=== PATIENT | male | born 1965 | race Caucasian/White ===

== ENCOUNTER 2024-01-02 19:26 | Emergency (ER) | payer SELFPAY ==
--- NOTE | ~2024-01-02 | CT_ITS ---
EXAMINATION: CT HEAD WITHOUT CONTRAST CLINICAL INFORMATION: Trauma. COMPARISON: None available. TECHNIQUE: Contiguous axial imaging was performed from the skull base to vertex without intravenous administration of contrast. This CT examination was performed using dose optimization techniques as appropriate, variously including the following: *Automated exposure control *Adjustment of mA and/or kV according to patient size (this includes techniques or standardized protocols for targeted exams where dose is matched to indication/reason for exam; i.e. extremities or head) *Use of iterative reconstruction technique DLP: 739 mGy-cm FINDINGS: There is no acute intracranial hemorrhage. There is no evidence of acute/subacute cerebral or cerebellar infarction. There is no midline shift or mass effect. No extra-axial fluid collection. The ventricles are normal in size. The orbits are symmetric and within normal limits. The calvarium is intact. The mastoid air cells are well-aerated. Visualized paranasal sinuses are clear. CT/CT head/brain wo IV con IMPRESSION: No acute intracranial abnormality. Electronically signed by: Gil Mahmood DO 01/02/2024 10:16 PM EDT
[2024-01-02 19:59] VITALS: BP 126/79; PULSE 104; RESP 18; TEMP 36.8; O2SAT 97; BMI 24.4
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
== END 2024-01-03 01:01 | disposition left against medical advice (07) ==
PROVIDERS: Emergency Provider Emergency Medicine; PCP Family Medicine
DX: S09.90XA Unspecified injury of head, initial encounter (principal); X58.XXXA Exposure to other specified factors, initial encounter; Y93.9 Activity, unspecified; Y92.9 Unspecified place or not applicable; Y99.9 Unspecified external cause status; Z53.21 Procedure and treatment not carried out due to patient leaving prior to being seen by health care provider
CPT/HCPCS: 70450; 99281

== ENCOUNTER 2024-11-11 04:40 | Emergency (ER) | payer MEDICARE, SELFPAY ==
--- NOTE | 2024-11-11 | ECG_ITS ---
Test Reason : weakness, fall, dizziness Blood Pressure : */* mmHG Vent. Rate : 64 BPM Atrial Rate : 64 BPM P-R Int : 168 ms QRS Dur : 100 ms QT Int : 432 ms P-R-T Axes : 34 26 44 degrees QTcB Int : 445 ms Normal sinus rhythm Normal ECG No previous ECGs available Referred By: Generic ED Physician Electronically Signed By: BEL CASIANO MD
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
[2024-11-11 04:43] VITALS: BP 100/62; BP 110/80; PULSE 66; RESP 12; TEMP 36.6; O2SAT 95; O2SAT 96; BMI 25.1
[2024-11-11 05:14] LABS: Basophils Absolute Auto 0.1 X10*3/uL (0.0-0.2); Basophils Percent Auto 0.4 % (0-2); Eosinophils Absolute Auto 0.1 X10*3/uL (0.0-0.4); Eosinophils Percent Auto 0.7 % (0-4); Hematocrit 39.7 % (42.0-52.0); Hemoglobin 14.1 g/dl (14.0-18.0); Imm Gran Abs Auto 0.04 X10*3/uL (0.00-0.03); Imm Gran Pct Auto 0.3 % (0.0-0.4); Lymphocytes Absolute Auto 1.5 X10*3/uL (1.2-4.9); Lymphocytes Percent Auto 12.6 % (20-40); MANUAL DIFF FLAG NO; Mean Corpuscular HGB Conc 35.5 g/dl (31.0-36.0); Mean Corpuscular Hemoglobin 31.1 pg (27.0-33.0); Mean Corpuscular Volume 87.4 fL (80.0-98.0); Mean Platelet Volume 8.5 fL (9.4-12.4); Monocytes Absolute Auto 0.6 X10*3/uL (0.1-1.2); Monocytes Percent Auto 4.6 % (2-11); Neutrophils Absolute Auto 9.8 x10*3/uL (2.0-8.3); Neutrophils Percent Auto 81.4 % (45-73); Platelet Count 172 X10*3/uL (160-400); Red Blood Count 4.54 X10*6/uL (4.60-5.80); Red Cell Distribution Width 13.2 % (11.0-16.0)
[2024-11-11 05:25] LABS: Anion Gap 14 (12-20); Blood Urea Nitrogen 14 mg/dL (9-16); Calcium 8.7 mg/dL (8.4-10.2); Carbon Dioxide 23 mmol/L (22-29); Chloride 106 mmol/L (96-108); Creatinine Clr Calc Pharmacy 81.7; Estimated Glomerular Filt Rate > 60; Glucose Random 283 mg/dL (60-115); Potassium 3.3 mmol/L (3.3-5.1); Sodium 140 mmol/L (135-145)
[2024-11-11 07:08] VITALS: BP 98/64; PULSE 71; RESP 13; O2SAT 95
--- NOTE | 2024-11-11 07:08 | ED_ITS ---
HPI - Syncope General Chief Complaint: Fall Stated Complaint: fall Time Seen by Provider: 11/11/24 07:02 Source: patient, family and EMS Mode of arrival: EMS Limitations: no limitations History of Present Illness ED Provider: RASTA HPI narrative: 59 yo male with PMH of arthritis who takes lyrica, HLD, prior HTN but not on any new medications who notes he started to have body pain and aches in his joints worse than usual around 2am. He took his lyrica at 3am. He started to feel off like he was lightheaded and was standing in the kitchen when he fell down with brief LOC but was back up in a few seconds. He denies trauma. He notes he tried to get up again and walk and fell hitting his head into the wall but no LOC. He notes no recent n/v/d, GIB symptoms, no travel or procedures and no CP/SOB. He states he has been drinking enough water and denies being outside in the heat. He states he has some pain to the R knee from the fall. MD complaint: loss of consciousness Onset (ago): hour(s) (2am) -: second(s) Prodromal symptoms: vision changes and lightheaded Witnessed: No Context: standing up Injuries sustained associated with event: head and RLE Current symptoms: none Treatments prior to arrival: none Related Data Allergies Allergy/AdvReac Type Severity Reaction Status Date / Time gabapentin Allergy Unknown Unknown Verified 11/11/24 04:53 Sulfa (Sulfonamide Allergy Unknown Unknown Verified 11/11/24 04:53 Antibiotics) nabumetone AdvReac Unknown stomach Verified 11/11/24 04:53 upset Review of Systems 2 Review of Systems: Constitutional : No Fever, No Chills, No Fatigue ENT/Mouth : No sore throat, No Rhinorrhea Eyes: No Eye Pain, No Swelling, No Redness Cardiovascular : No Chest Pain, No SOB, No Dyspnea on Exertion Respiratory : No Cough, No Sputum Gastrointestinal : No Nausea, No Vomiting, No Diarrhea, No abdominal Pain Genitourinary : No Dysuria, No Urinary Frequency, No Hematuria, Musculoskeletal : No joint pain, No Myalgias, No Joint Swelling Skin : No Skin Lesions, No rash, pos abrasion Neuro : No Weakness, No Numbness,pos Dizziness, no Headache Psych : No Anxiety/Panic, No Depression Heme/Lymph: No Bruising, No Bleeding,No Lymphadenopathy Endocrine : No Polyuria, No Polydipsia All other systems reviewed and are negative [facility] Past Medical History Attestation statement: The following information was validated with the patient. Medical History HLD (hyperlipidemia) HTN (hypertension) Arthritis Social History Social History (Updated 11/11/24 @ 07:44 by Kateryna Restrepo DO) Patient Tobacco Use Status: Current everyday Tobacco user Smoked in Last 30 Days: Yes Use of substances other than those prescribed or required for medical reasons: No Advance Directives: No Advance Directives Information Provided: No Physical Exam 2 Vital Signs: Vital Signs: Last Vital Signs Temp 97.9 F 11/11/24 04:43 Pulse 77 11/11/24 08:01 Resp 13 11/11/24 07:08 BP 110/73 11/11/24 08:01 Pulse Ox 95 11/11/24 07:08 O2 Del Method Room Air 11/11/24 07:08 BMI result Body Mass Index 25.1 Appearance: Alert. Oriented X3. No acute distress. Eyes: Pupils equal, round and reactive to light. ENT: Pharynx dry MM. R side of head ttp but no obvious deformity Neck: Normal inspection. Neck supple. CVS: Normal heart rate and rhythm. Pulses normal. Respiratory: No respiratory distress. Breath sounds normal. Abdomen: Soft and nontender. Skin: Skin warm and dry. Normal skin color. Normal skin turgor. Extremities: No lower extremity edema. No calf ttp R knee superficial abrasion Neuro: Oriented X 3. No motor deficit. No sensory deficit. CN2-12 intact Medications Administered Discontinued Medications Generic Name Dose Route Start Last Admin Trade Name Freq PRN Reason Stop Dose Admin Lactated Ringer's 1,000 mls @ 999 mls/hr 11/11/24 07:16 11/11/24 09:49 Lr IV 11/11/24 08:16 Infused .Q1H1M ONE Infusion Lactated Ringer's 1,000 mls @ 999 mls/hr 11/11/24 07:16 11/11/24 09:49 Lr IV 11/11/24 08:16 Infused .Q1H1M ONE Infusion Medical Decision Making Medical Decision Making MDM Narrative: 59 yo male with PMH of arthritis who takes lyrica, HLD, prior HTN here with episode of syncope with prodrome but no proceeding CP/SOB, GIB symptoms or GI losses. He has no abd pain on exam and otherwise looks mildly dehydrated but not toxic. He takes no HTN meds or diuretics. At this time he he has no hypoxia or chest pain to suggest VTE or ACS. He appears dry at this time will obtain labs, CT head, EKG, ortho VS, IVF x 2L and reassess. He had a prodrome and suspicion he was going to pass out as well no known hx of CAD. Differential Diagnosis Differential Diagnoses: The differential diagnosis associated with the presentation includes dehydration, anemia, rhabdo Admission/Observation Consideration of admission/observation: Escalation of care including admission/observation considered two trops negative, imaging negative symptoms negative ortho VS negative symptoms including his cramps resolved with IVF Lab Data MDM Lab Attestation statement: I reviewed the patient's lab results. 11/11/24 05:09 11/11/24 05:09 Labs: Lab Results 11/11/24 11/11/24 11/11/24 Range/Units 05:09 07:52 09:07 WBC 12.0 H (4.8-10.8) X10*3/uL RBC 4.54 L (4.60-5.80) X10*6/uL Hgb 14.1 (14.0-18.0) g/dl Hct 39.7 L (42.0-52.0) % MCV 87.4 (80.0-98.0) fL MCH 31.1 (27.0-33.0) pg MCHC 35.5 (31.0-36.0) g/dl RDW 13.2 (11.0-16.0) % Plt Count 172 (160-400) X10*3/uL MPV 8.5 L (9.4-12.4) fL Immature Gran % (Auto) 0.3 (0.0-0.4) % Neut % (Auto) 81.4 H (45-73) % Lymph % (Auto) 12.6 L (20-40) % [place] % (Auto) 4.6 (2-11) % Eos % (Auto) 0.7 (0-4) % Baso % (Auto) 0.4 (0-2) % Lymph # (Auto) 1.5 (1.2-4.9) X10*3/uL [place] # (Auto) 0.6 (0.1-1.2) X10*3/uL Eos # (Auto) 0.1 (0.0-0.4) X10*3/uL Baso # (Auto) 0.1 (0.0-0.2) X10*3/uL Abs Immat Gran (auto) 0.04 H (0.00-0.03) X10*3/uL Absolute Neuts (auto) 9.8 H (2.0-8.3) x10*3/uL Absolute Nucleated RBC 0.000 (0.0-0.012) X10*3/uL Nucleated RBC % (auto) 0.0 (0.0-0.2) /100WBC Sodium 140 (135-145) mmol/L Potassium 3.3 (3.3-5.1) mmol/L Chloride 106 (96-108) mmol/L Carbon Dioxide 23 (22-29) mmol/L Anion Gap 14 (12-20) BUN 14 (9-16) mg/dL Creatinine 1.03 (0.5-1.4) mg/dL Estim Creat Clear Calc 81.7 Estimated GFR > 60 Random Glucose 283 H (60-115) mg/dL Calcium 8.7 (8.4-10.2) mg/dL Magnesium 2.0 (1.6-2.6) mg/dL Total Bilirubin 0.5 (0.0-1.0) mg/dL Direct Bilirubin 0.1 (0.0-0.5) mg/dL AST 25 (5-37) U/L ALT 14 (0-40) U/L Alkaline Phosphatase 49 (39-117) U/L Total Creatine Kinase 164 (38-174) U/L Troponin I High Sens < 2.7 < 2.7 (<3.5-35.0) ng/L Total Protein 6.4 L (6.5-8.0) g/dL Albumin 4.0 (3.5-5.0) g/dL Ethyl Alcohol < 10 mg/dL Influenza Type A (PCR) NEGATIVE (Negative) Influenza Type B (PCR) NEGATIVE (Negative) RSV RNA Qual (PCR) NEGATIVE (Negative) SARS-CoV-2 RNA (RT-PCR) NEGATIVE (Negative) Independent Interpretation I performed an independent interpretation of an: EKG and CT Scan (normal ) Interpretation: Rate: 64 Rhythm: NSR [place]: normal Normal P waves. Normal KATIE. Normal QRS complex. ST T wave : normal no JEFFREY qTC:445 prior studies: no acute ischemia The study has been interpreted contemporaneously by me. . Radiology Impression Discussion of test interpretation with radiology: I have reviewed the radiologist's reading. Independent Historian Clinical information obtained from an independent historian. History obtained from or confirmed by: EMS External Record Review External record reviewed: Outpatient record Discharge Plan Discharge Clinical Impression: Abrasion, Myalgia Syncope Qualifiers: Syncope type: unspecified Qualified Code(s): R55 - Syncope and collapse Patient Disposition: Home, Self-Care Instructions: Musculoskeletal Pain (ED), Syncope (ED), Abrasion (ED) Additional Instructions: rest and stay hydrated CT head normal today labs and repeat heart tests normal EKG reassuring follow up with your doctor rest for the next few days return for chest pain, fevers, vomiting, diarrhea, dizziness and fainting Print Language: Croatian
[2024-11-11] MEDS: Lactated Ringers 1,000 ML 999 ML IV ×2 (07:24→07:59)
[2024-11-11 07:46] LABS: Ethanol < 10 mg/dL
[2024-11-11 07:55] LABS: Troponin-I High Sensitivity < 2.7 ng/L (<3.5-35.0)
[2024-11-11 08:00] VITALS: BP 105/67; PULSE 65
[2024-11-11 08:01] VITALS: BP 107/77; BP 110/73; PULSE 76; PULSE 77
[2024-11-11 08:14] LABS: Alanine Aminotransferase 14 U/L (0-40); Alkaline Phosphatase 49 U/L (39-117); Aspartate Amino Transferase 25 U/L (5-37); Bilirubin Direct 0.1 mg/dL (0.0-0.5); Bilirubin Total 0.5 mg/dL (0.0-1.0); Total Protein 6.4 g/dL (6.5-8.0)
[2024-11-11 09:18] LABS: Influenza A PCR NEGATIVE (Negative); Influenza B PCR NEGATIVE (Negative); Resp Syncy Virus RNA Qual PCR NEGATIVE (Negative); SARS COV2 PCR INHOUSE NEGATIVE (Negative)
[2024-11-11 09:40] LABS: Troponin-I High Sensitivity < 2.7 ng/L (<3.5-35.0)
[2024-11-11 10:06] VITALS: BP 119/74; PULSE 61; RESP 14; TEMP 36.3; O2SAT 97
[2024-11-11 10:13] VITALS: BP 119/74; PULSE 61; RESP 14; TEMP 36.3; O2SAT 97
== END 2024-11-11 10:13 | disposition home or self-care (01) ==
PROVIDERS: Emergency Provider Emergency Medicine
DX: R55 Syncope and collapse (principal); M79.10 Myalgia, unspecified site; S80.211A Abrasion, right knee, initial encounter; W18.39XA Other fall on same level, initial encounter; I10 Essential (primary) hypertension; E78.5 Hyperlipidemia, unspecified; F17.200 Nicotine dependence, unspecified, uncomplicated; Z03.818 Encounter for observation for suspected exposure to other biological agents ruled out; Y93.9 Activity, unspecified; Y92.9 Unspecified place or not applicable; Y99.9 Unspecified external cause status
CPT/HCPCS: 0241U; 36415; 70450; 80048; 80076; 80307; 82550; 83735; 84484; 85025; 93005; 96360; 96361; 99284; 99285; J7120

== ENCOUNTER → 2024-11-11 04:52 | Outpatient (BNV) | payer MEDICARE, SELFPAY | PROVIDERS: Emergency Provider Emergency Medicine; Visit Provider Internal Medicine Cardiovascular Disease | DX: R53.1 Weakness (principal); R42 Dizziness and giddiness; W19.XXXA Unspecified fall, initial encounter | CPT/HCPCS: 93010 ==

== ENCOUNTER → 2024-11-11 07:16 | Outpatient (BNV) | payer MEDICARE, SELFPAY | PROVIDERS: Emergency Provider Emergency Medicine; Visit Provider Radiology Diagnostic Radiology | DX: S09.90XA Unspecified injury of head, initial encounter (principal) | CPT/HCPCS: 70450 ==

== ENCOUNTER 2025-03-28 08:07 | Outpatient (AMB) | payer MEDICARE, SELFPAY ==
--- OUTSIDE RECORDS SUMMARY | 2009-03-18 | XMS_ITS | Encounter Summary ---
Author Organization [facility] Address [address] [employer] [facility] [address] [place] [phone] Phone Care Team Providers Care Grit Blaster Name Role Phone Unavailable Primary Care Provider Unavailabl e Encounter Details Date Type Department Care Team (Late st Contact Info) Description 03/18/2009 Hospital Encounter [facility],Outside Imaging [address] [place] [address] System, Provider Not In, [facility] [address] [address] Social History Tobacco Use Types Packs/Day Years Used Date Smoking Tobacco: Every Day Cigarettes 0.5 38.9 Started: 1986 Smokeless Tobacco: Never Comments:10 cigarettes daily Alcohol Use Standard Drinks/Week Comments Not Currently 0 (1 standard drink = 0.6 oz pur e alcohol) 1-2 x year Child or Family Care Answer Date Record ed Do you have problems with on e of the following making it difficult for you to work, study, or receive health care? No 11/23/2022 Education Answer Date Recorded Are you interested in more education? Not on fermin e 11/23/2024 Are you concerned about learning? Not on file 11/23/2024 No 11/23/2024 No 11/23/2024 Food Answer Date Recorded Within the past 6 months we worried whether our food would run out before we got money to buy more. Never True 11/23/2022 Within the past 6 months the food we bought just didn't last and we didn't have enough money to get more. Never True Residential Stability Answer Date Recor ded What is your housing situation today? I have ekaterina sing 11/23/2022 How many times have you move d in the past 12 months? Zero (I did not move) 11/23/2022 Paying for Meds Answer Date Recorded Do you have trouble paying for medicines? No 11/23/2022 Paying Utility Bills Answer Date Record ed Do you have trouble paying your heating or elect ricity bill? No 11/23/2022 Transportation Answer Date Recorded Has the lack of transportati on kept you from medical appointments or from getting medications? No 11/23/2022 Unemployment Answer Date Recorded Are you currently unemployed or working on a part-time or temporary basis, and looking for work? No 11/13/2021 Digital Access Answer Date Recorded No 11/23/2024 No 11/23/2024 Reliable internet access at home? Not on file 11/23/2024 Device with a working camera? Not on file Intimate Partner Violence Answer Date R ecorded Are you denied basic needs s uch as food, clothing, or medical care? No 02/13/2025 In the past 12 months have y ou been in a relationship with a person who hurts, threatens, or tries to control you? No 02/13/2025 Are you denied basic needs s uch as food, clothing, or medical care? No 02/13/2025 In the past 12 months have y ou been in a relationship with a person who hurts, threatens, or tries to control you? No 02/13/2025 Sex and Gender Information Value Date Recorded Sex Assigned at Male 02/13/2025 4:23 AM EDT Legal Sex Male 10:32 PM EDT Gender Identity Male 02/13/2025 4:23 AM EDT Sexual Orientation Don't know 02/13/2025 4: 23 AM EDT documented as of this encounter Functional Status * Calculated C-SSRS Risk Score (Lifetime/Recent) Answer Date of Assessment Author No Risk Indicated 02/13/2025 4:12 AM EDT Clementina Hansen RN * Eads Suicide Severity Rating Scale (Screener/Recent Self-Report) Question Answer Date of Assessment Author 1. Wish to be (Past 1 Month) No 02/13/2025 4:12 AM EDT Radha Du RN 2. Non-Specific Active Suicidal Thoughts (Past 1 Month) No 02/13/2025 4:12 AM EDT Radha Du RN 6. Suicidal Behavior (Lifetime) No 02/13/2025 4:12 AM EDT Radha Du RN documented as of this encounter Plan of Treatment Upcoming Encounters Date Type Department Care Team (Late st Contact Info) Description 04/03/2025 8:00 AM EST Office Visit [facility] Orthopedics & Sports Medicine [address] [place] [phone] Danielle Blanca MD [address] [place] [address] Orthopedics & Sports Medicine, [facility] [place] [address] [email or web address] documented as of this encounter Procedures Procedure Name Priority Date/Time Associated Diagnosis Comments MRI SPINE MUSCULOSKELETAL FOCUS OUTSIDE (NO INTERPRETATION) Routine 03/18/2009 12:00 AM EST documented in this encounter Results * MRI Spine (Bone) Outside (No Interpretation) (03/18/2009 12:00 AM EST) Narrative SYSTEMGENERATED, DOCUMENTATION - 12/30/2020 5:53 PM EDT This study is for PACS storage only and not for interpretation. us Provider Not In System PhD IMG OUTSIDE IMAGING W /OUT INTERPRETATION Final Result documented in this encounter Visit Diagnoses Not on filedocumented in this encounter Additional Source Comments The information contained in this document represents components of the legal health record. It is not the complete legal health record.[facility]
--- OUTSIDE RECORDS SUMMARY | 2025-03-27 08:00 | XMS_ITS | Encounter Summary ---
Author Organization [facility] Address [address] [facility] [address] [place] [phone] Phone Care Team Providers Care Breeder Hen Service Technician Name Role Phone Billy Miramontes MD Unavailable [phone] SahUmesh longoria DO Primary Care Provider [phone] Umesh Pugh DO Unavailable Reason for Visit * Reason Comments Follow-up Arthritis of carpome tacarpal (CMC) joint of left thumb Encounter Details Date Type Department Care Team (Latest Contact Info) Description 03/27/2025 8:00 AM EST Office Visit [facility] Orthopedics & Sports Medicine [address] [place] [address] [phone] Tomasa De La Garza PA-C [address] [place] [address] Orthopedics & Sports Medicine, [facility]. 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 I have ekaterina elmore 11/23/2022 How many times have you move [...] AM EDT documented as of this encounter Progress Notes * Tomasa De La Garza PA-C - 03/27/2025 8:00 AM EST [facility] Date of Visit: 03/27/2025 Reason for Appointment: Left thumb pain HPI: Harpreet Ortega is a 59 y.o. male who presents today requesting injection into the IP joint of his left thumb. He last underwent an injection into this joint 5 months ago in October 2024. That provided excellent relief for several months. No other concerns. Exam: In general, the patient is in no acute distress. Affect is appropriate. Alert and oriented ??3. Breathing is nonlabored. Left hand: No gross deformity present. No swelling or ecchymosis or breaks in skin. He is tender topalpation at the dorsum of the interphalangeal joint and to a lesser extent at the thumb CMC. He has no tenderness at the A1 annabella, no catching or triggering. Intact EPL, FPL function. Imaging: Previous x-rays taken in clinic. These were reviewed today. Images confirm osteophyte formation at the thumb IP and some flattening at the MP. Also some arthritic changes at the thumb CMC. Asssessment: Left thumb arthritis Plan: Patient requested and tolerated well injection into the IP joint of the left thumb. This can be repeated no sooner than 4 months from today. He is welcome to return as needed. All questions were answered to the patient's content today. Harpreet Ortega verbalizes understanding and agreement withplan. Procedure: After discussion of risks and benefits of corticosteroid injection, patient elected to proceed. The left thumb IP joint was prepped with ChloraPrep. An injection of 0.5 cc of 1% lidocaine plain and 0.5 cc of 40 mg/mL Kenalog was injected into the thumb IP joint from the ulnar aspect. Patient tolerated injection well, and Band-Aid was placed. Tomasa De La Garza PA-C documented in this encounter Plan of Treatment Upcoming Encounters Date Type Department Care Team (Late st Contact Info) Description 04/03/2025 8:00 AM EST Office Visit [facility] Orthopedics & Sports Medicine [address] [place] [address] Danielle Blanca MD [facility] Orthopedics & Sports Medicine, [facility] 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- Primary documented in this encounter Administered Medications Inactive Administered Medications - up to 3 most recent administrations Medication Order MAR Action Action Date Dose Rate Site lidocaine (XYLOCAINE) 1% injection 0.5 mL 0.5 mL, See Administration Instructions, Once, On Sherrill 03/27/25 at 0930, For 1 dose Given 03/27/2025 9:13 AM EST 0.5 mL triamcinolone acetonide (KENALOG-40) 40 mg/mL injection 20 mg 20 mg, See Administration Instructions, Once, On Sherrill 03/27/25 at 0930, For 1 dose, Shake Well Given 03/27/2025 9:14 AM EST 20 mg documented in this encounter Additional Health Concerns Assessment Noted Time PHQ-2 Depression Total Score: 0 07/24/19 7:58 AM EDT documented as of this encounter Care Teams Breeder Hen Service Technician Relationship Specialty Start Date End Date Umesh Pugh DO [address] [id number] [email or web address] PCP - General Family Medicine 10/05/23 Billy Miramontes MD [address] [place] [id number] Neurosurgery 03/24/20 Umesh Pugh DO [address] [place] [id number] [email or web address] Insurance Assigned Provider 08/18/24 documented as of this encounter Additional Source Comments The information contained in this document represents components of the legal health record. It is not the complete legal health record.[facility]
[2025-03-28 08:08] VITALS: BP 122/88; PULSE 92; TEMP 36.7; O2SAT 95; BMI 22.5
--- NOTE | 2025-03-28 08:08 | MHC.OFFWIV ---
Intake Vital Signs 03/28/25 08:08 Height 5 ft 10 in Weight 157 lb BMI 22.5 BP 122/88 Blood Pressure Location Rt brachial Position Sitting Pulse 92 Pulse Source Pulse Oximeter Temp 98.1 F Temp Source Oral Pulse Oximetry (%) 95 Oxygen Delivery Method Room Air Intake Visit Reasons: EP pain on left side of jaw Intake Note: Patient presents c/o lower left jaw pain since last night - ongoing problem, in between implants & surgeries. Patient Tobacco Use Status: Current everyday Tobacco user Allergies gabapentin Allergy (Unknown, Verified 03/28/25 08:12) Unknown Sulfa (Sulfonamide Antibiotics) Allergy (Unknown, Verified 03/28/25 08:12) Unknown nabumetone Adverse Reaction (Unknown, Verified 03/28/25 08:12) stomach upset Do you need a note to return to daycare/school/sports/work: No HPI HPI Comments History of Present Illness Details This is a 59-year-old male with a past medical history of OCD, hyperlipidemia and arthritis presenting for evaluation of left facial pain. Patient states last night he developed pain on the left side of his chin with swelling and experienced chills in the nighttime. Patient has taken Tylenol only without relief of his discomfort. Patient is working with his dentist to have implants placed but has not seen his dentist since November 2024. Patient denies any difficulty swallowing but does have pain with chewing. [facility] Medical History HLD (hyperlipidemia) HTN (hypertension) Arthritis Social History (Updated 11/11/24 @ 07:44 by Kateryna Restrepo DO) Patient Tobacco Use Status: Current everyday Tobacco user Review of Systems Const All systems reviewed & are unremarkable except as noted in HPI and below Reports chills, Denies fatigue and Denies fever(s) Eyes Reports no additional complaints ENT Reports no additional complaints, Reports dental pain, Denies lip swelling, Denies sore throat and Denies throat swelling Card Reports no additional complaints Resp Reports no additional complaints GI Reports no additional complaints, Denies nausea and Denies vomiting Reports no additional complaints Musc Reports no additional complaints Skin/Breast Details: swelling of chin Reports system reviewed and no additional complaints, except as documented Neuro Reports no additional complaints Psych Reports no additional complaints Endo Denies fatigue Aller/Immun Denies lip swelling and Denies throat swelling Physical Exam Vital Signs: Last Vital Signs Temp 98.1 F 03/28/25 08:08 Pulse 92 03/28/25 08:08 BP 122/88 03/28/25 08:08 Pulse Ox 95 03/28/25 08:08 Oxygen Delivery Method Room Air 03/28/25 08:08 BMI result Body Mass Index 22.5 Const General: cooperative, comfortable, no acute distress, well developed, alert, awake and Physically active; No lethargic Nutritional Appearance: average body habitus Orientation/consciousness: patient oriented x3 and No lethargic Limitations: no limitations HEENT Other: Very poor dentition with several avulsed or necrotic teeth, lower dentition, pain to palpation of lower left promolar and bicuspid teeth that are both avulsed, mild surrounding erythema of localized gingivae on both lingual and buccal aspects of teeth. There is edema and tenderness to palpation of the left anterior chin. No clinical evidence of a cellulitis or abscess of external dermis. Ears: hearing grossly normal bilaterally, external ears normal, TM's normal bilaterally and EAC's normal Mouth: Normal oral and palatal mucosa present, tongue normal, oropharynx normal, moist mucous membranes, no audible dysphonia, no drooling, normal lip, Abnormal oral and palatal mucosa present, no trismus and other (necrotic and avulsed dentition as noted above) Teeth and gingiva: abnormal dentition, abnormal tooth and associated gingiva and poor dentition Throat: Yes posterior oropharynx normal Eyes General: appearance normal, both eyes and all related structures Neck Lymphatic: lymphadenopathy (left anterior cervical adenopathy present) left anterior cervical Neuro General: patient oriented x3 Psych Appearance: grossly normal Mental Status: mental status grossly normal Insight: Good insight present (Psych) Judgement: Good judgement present (Psych) Assessment & Plan Assessment & Plan (1) Dental abscess: Comment: Patient will call his dentist today for further dental intervention. Patient will be discharged home with antibiotic therapy as well as anti-inflammatory medication for his pain. Code(s): K04.7 - Periapical abscess without sinus Plan: Penicillin and Flagyl as prescribed, Naprosyn b.i.d. and dental intervention when possible. Patient is in agreement with this plan of care. Medications: New penicillin V potassium 500 mg PO TID 30 tabs 0RF naproxen (Naprosyn) 500 mg PO BID 20 tabs 0RF metronidazole 500 mg PO Q8H 30 tabs 0RF Coding Level of Care Code Est Pt Level 4 (44049) Diagnoses Dental abscess K04.7 Time Spent (min) 25
--- OUTSIDE RECORDS SUMMARY | 2025-03-28 08:13 | XMS_ITS | Clinical Summary ---
Author Organization [facility] Address [address] [place] [address] Care Team Providers Care Delivery Director Name Role Phone Mishel Peñaloza NP Primary Care Provider Unavailabl e Surgical History Surgery Date Site/Laterality Comments VASECTOMY PROCEDURE: CA VASECTOMY UNI/BI SPX W/POSTOP SEMEN EXAMS BACK SURGERY PROCEDURE: HISTORICAL BACK SURGERY; COMMENT: Dr. Jones, lumbar disckectomy APPENDECTOMY PROCEDURE: HISTORICAL APPENDECTOMY Medical History Medical History Date Comments Headache(784.0) 08/25/2005 DX:Headache(784. 0) Displacement of lumbar inter vertebral disc without myelopathy 09/11/2006 DX:Displacement of lumbar intervertebral disc without myelopathy Anxiety 12/15/2007 DX:Anxiety Obsessive-compulsive disorder 12/15/2007 DX :Obsessive-compulsive disorder Family History Medical History Relation Name Comments Other: has been well Father Diabetes Mother Stroke Mother Relation Name Status Comments Father Alive Mother Alive Social History Tobacco Use Types Packs/Day Years Used Date Smoking Tobacco: Some Days Cigarettes 0.5 Last attempted to quit: 11/01/2005 Alcohol Use Standard Drinks/Week Comments No 0 (1 standard drink = 0.6 oz pur e alcohol) Sex and Gender Information Value Date Recorded Sex Assigned at Not on file Legal Sex Male 7:25 PM EST Gender Identity Not on file Sexual Orientation Not on file Obstetrics History Plan of Treatment Health Maintenance Due Date Last Done Comments Hepatitis B Vaccines (1 of 3 - 19+ 3-dose series) 1986 Pneumococcal Vaccine: 50+ Years (1 of 1 - PCV) 2017 Zoster Vaccines (1 of 2) 2017 DTaP,Tdap,and Td Vaccines (2 - Td or Tdap) 08/22/2017 08/23/2007 Depression Screening 05/15/2024 COVID-19 Vaccine (1 - 2024-2 6 season) 2025 Influenza Vaccine (#1) 2025 0, 04/01/2008 RSV Immunization Adult Patients (1 - 1-dose 75+ series) 2042 HIB Vaccines Aged Out No longer eligi ble based on patient's age to complete this topic HPV Vaccines Aged Out No longer eligi ble based on patient's age to complete this topic Hepatitis A Vaccines Aged Out No long er eligible based on patient's age to complete this topic IPV Vaccines Aged Out No longer eligi ble based on patient's age to complete this topic MMR Vaccines Aged Out No longer eligi ble based on patient's age to complete this topic Meningococcal ACWY Vaccine Aged Out N o longer eligible based on patient's age to complete this topic Meningococcal B Vaccine Aged Out No l onger eligible based on patient's age to complete this topic RSV Immunization Patients Under 20 months Aged Out No longer eligible b ased on patient's age to complete this topic Varicella Vaccines Aged Out No longer eligible based on patient's age to complete this topic Medical Devices Implanted Type Area Electronics Engineering Technician Device Identifier Shelf Expiration Date Model / Serial / Lot Sponge Surgiflo 8ml Hemostatic Matrix Absorbable Latex Free - [id number] Implanted:Qty: 1 on 04/08/2019 by Billy Miramontes MD Implants Spine Cervical [employer]DA [employer] LINDA WILFR[employer]O 07/12/2020 [id number] / / [id number] Sponge Surgiflo 8ml Hemostatic Matrix Absorbable Latex Free - [id number] Implanted:Qty: 2 on 04/06/2020 by Billy Miramontes MD Implants N/A: Spine Lumbar [employer]DA WILFR[employer]O 09/11/2021 [id number] / / [id number] Tissue Freeze Dried Cortical Or Cancellous Block [facility] 6 - [id number] - [id number] Implanted:Qty: 1 on 04/08/2019 by Billy Miramontes MD Spine Cervical [employer] 05/11/2021 [id number] / [id number] / Screw [place] 16mm Self Drilling Variable Titanium Bone - [id number] Implanted:Qty: 4 on 04/08/2019 by Billy Miramontes MD N/A: Spine Cervical DEPUY SYNTHES [id number] / / Plate Bone Titan 14 Mm Prebent L14 Mm X W16 Mm X H2.5 Mm - [id number] Implanted:Qty: 1 on 04/08/2019 by Billy Miarmontes MD N/A: Spine Cervical DEPUY SYNTHES 1868-01-014 / / Care Teams Delivery Director Relationship Specialty Start Date End Date Mishel Peñaloza NP PCP - General Family Medicine 09/11/18
--- OUTSIDE RECORDS SUMMARY | 2025-03-28 08:14 | XMS_ITS | Encounter Summary ---
Author Organization [facility] Address [address] [facility] [address] [place] [address] Phone Care Team Providers Care It Technical Architect Name Role Phone Mishel Peñaloza NP Primary Care Provider [phone] Billy Miramontes MD Unavailable [phone] Chris Stokes MD Unavailable Unknown, Unknown Primary Care Provider Umesh Barragan DO Primary Care Provider [phone] Umesh Pugh DO Unavailable Encounter Details Date Type Department Care Team (Late st Contact Info) Description 03/16/2021 Procedure Pass [facility] Endoscopy Admitting Dept Virtual Department [address] [place] [address] Social History Tobacco Use Types Packs/Day Years Used Date Smoking Tobacco: Every Day Cigarettes 0.5 35 Started: 03/19/1984; Last attempted to quit: 03/19/2019 Smokeless Tobacco: Never Alcohol Use Standard Drinks/Week Comments No 0 (1 standard drink = 0.6 oz pur e alcohol) Child or Family Care Answer Date Record ed Do you have problems with on e of the following making it difficult for you to work, study, or receive health care? No 11/05/2020 Education Answer Date Recorded Are you interested in help w ith more adult education (for example, completing high school, GED, job training, learning the [place] Zeal[place] language, technical skills, or developing parenting skills)? No 11/05/2020 Are you concerned about learning? Not on file 11/05/2020 Not on file 11/05/2020 Not on file 11/05/2020 Food Answer Date Recorded Within the past 6 months we worried whether our food would run out before we got money to buy more. Never True 11/05/2020 Within the past 6 months the food we bought just didn't last and we didn't have enough money to get more. Never True Paying for Meds Answer Date Recorded Do you have trouble paying for medicines? No 11/05/2020 Paying Utility Bills Answer Date Record ed Do you have trouble paying your heating or elect ricity bill? No 11/05/2020 Transportation Answer Date Recorded Has the lack of transportati on kept you from medical appointments or from getting medications? No 11/05/2020 Sex and Gender Information Value Date Recorded Sex Assigned at Male 02/13/2025 4:23 AM EDT Legal Sex Male 10:32 PM EDT Gender Identity Male 02/13/2025 4:23 AM EDT Sexual Orientation Don't know 02/13/2025 4: 23 AM EDT documented as of this encounter Plan of Treatment Upcoming Encounters Date Type Department Care Team (Late st Contact Info) Description 04/03/2025 8:00 AM EST Office Visit [facility] Orthopedics & Sports Medicine [address] [place] [address] Danielle Blanca MD [address] [place] [address] Orthopedics & Sports Medicine, [facility] [place] [address] [email or web address] documented as of this encounter Visit Diagnoses Not on filedocumented in this encounter Additional Health Concerns Assessment Noted Time PHQ-2 Depression Total Score: 0 11/06/19 21 3:06 PM EDT documented as of this encounter Care Teams It Technical Architect Relationship Specialty Start Date End Date Mishel Peñaloza NP PCP - General Family Medicine 02/08/18 08/09/23 Unknown, Unknown, PCP - General 08/10/23 10/04/23 Umesh Pugh DO [address] [place] [address] [address] [place] [address] [email or web address] PCP - General Family Medicine 10/05/23 Billy Miramontes MD [address] [place] [address] Neurosurgery 03/24/20 Chris Stokes MD [address] [place] [address] [email or web address] Insurance Assigned Provider 08/21/21 05/21/22 Umesh Pugh DO [address] [place] [address], [address] [place] [address] [email or web address] Insurance Assigned Provider 08/18/24 documented as of this encounter Additional Source Comments The information contained in this document represents components of the legal health record. It is not the complete legal health record.[facility]
--- OUTSIDE RECORDS SUMMARY | 2025-03-28 08:14 | XMS_ITS | Clinical Summary ---
Author Organization [facility] Address [address] [place] [address] Care Team Providers Care Dirt Supervisor Name Role Phone Mishel Peñaloza NP Primary Care Provider [phone] Allergies Active Allergy Reactions Criticality Noted Date Comments Gabapentin Diarrhea 03/21/2018 Hydrochlorothiazide High 02/20/2008 Other reaction(s): Numbness, tingling or swelling of the lips, tongue or mouth Numbness of lips, tongue and limbs Sulfa Antibiotics Anaphylaxis High 03/25/2019 Sulindac Other (See Comments) 09/28/2011 Nose bleeds Medications Medication Sig Dispensed Refills Start Date End Date Status sertraline (ZOLOFT) 100 MG tablet Take 300 mg by mouth daily. 0 11/07/2018 Active Multiple Vitamins-Minerals (MULTIVITAMIN ADULT PO) Take by mouth daily. 0 Active nicotine (NICODERM CQ) 14 MG/24HR Place 1 patch onto the skin daily. 0 Active tiZANidine (ZANAFLEX) 4 MG tablet Take 4 mg by mouth 2 (two) times a day as needed. 0 04/02/2019 Active oxyCODONE (ROXICODONE) 5 MG immediate release tablet Take 2 tablets (10 mg total) by mouth every 4 (four) hours as needed. 40 tablet 0 04/08/2019 Active oxyCODONE-acetaminoph en (PERCOCET) 5-325 MG per tablet Take 2 tablets by mouth every 4 (four) hours as needed for pain. 40 tablet 0 04/06/2020 Active Active Problems Problem Noted Date Diagnosed Date DDD (degenerative disc disease), lumbar 04/06/20 20 Status post cervical spinal fusion 04/24/2019 Social History Tobacco Use Types Packs/Day Years Used Date Smoking Tobacco: Every Day Cigarettes 0.5 Smokeless Tobacco: Never Comments:7-8 day Alcohol Use Standard Drinks/Week Comments No 0 (1 standard drink = 0.6 oz pur e alcohol) Sex and Gender Information Value Date Recorded Sex Assigned at Male 11/16/2018 12:49 PM EDT Gender Identity Male 11/16/2018 12:49 PM EDT Sexual Orientation Not on file Last Filed Vital Signs Vital Sign Reading Time Taken Comments Blood Pressure 120/82 04/17/2020 2:29 PM EST Pulse 78 04/06/2020 10:40 AM EST Temperature 36.8 C (98.3 F) 04/17/2020 2:29 PM EST Respiratory Rate 12 04/06/2020 10:15 AM EST Oxygen Saturation 94% 04/06/2020 10:40 AM EST Inhaled Oxygen Concentration - - Weight 86.2 kg (190 lb) 04/17/2020 2:29 PM EST Height 180.3 cm (5' 11 ) 04/06/2020 5:45 AM EST Body Mass Index 26.5 04/06/2020 5:45 AM EST Plan of Treatment Health Maintenance Due Date Last Done Comments Hepatitis B Vaccines (1 of 3 - 3-dose series) 1967 Hepatitis C Screening 1967 COVID-19 Vaccine (#1) 1967 Pneumococcal Vaccine (1 of 2 - PCV) 1973 Depression Screening 1979 Preventative Health Evaluation 1985 Tobacco Cessation Counseling 1985 Colon Cancer Screening (Colonoscopy) 2012 Shingrix-Zoster Vaccine (1 of 2) 2017 BMI Counseling 04/17/2021 04/17/2020, 10/13, 05/27/2019, Additional history exists Influenza Vaccine (#1) 2025 0, 04/02/2019, 03/21/2018, Additional history exists DTap / Tdap / Td (3 - Td or Tdap) 06/20/2029 06/20/2019, 08/23/2007 RSV Ped < 20 months Aged Out No longe r eligible based on patient's age to complete this topic Medical Devices Implanted Type Area Chaser Tar Device Identifier Shelf Expiration Date Model / Serial / Lot Sponge Surgiflo 8ml Hemostatic Matrix Absorbable Latex Free - [id number] - [id number] Implanted:Qty: 1 on 04/08/2019 by Billy Miramontes MD [facility] Hemostatic Agent Spine Cervical [employer] 07/12/2020 [id number] / / [id number] Sponge Surgiflo 8ml Hemostatic Matrix Absorbable Latex Free - [id number] - [id number] Implanted:Qty: 2 on 04/06/2020 by Billy Miramontes MD at [facility] Hemostatic Agent Posterior: Spine Lumbar [employer] 09/11/2021 2991 / / [id number] Tissue Freeze Dried Cortical Or Cancellous Block Assembled 6 - [id number] - [id number] Implanted:Qty: 1 on 04/08/2019 by Billy Miramontes MD at [facility] Spine Cervical [employer] SOFAMOR DANEK 05/11/2021 [id number] / [id number] / Screw Skyline[employer]a 16mm Self Drilling Variable Titanium Bone - [id number] - [id number] Implanted:Qty: 4 on 04/08/2019 by Billy Miramontes MD at [facility] Anterior: Spine Cervical [employer] [id number] / / Plate Bone Titan 14 Mm Prebent L14 Mm X W16 Mm X H2.5 Mm - [id number] - [id number] Implanted:Qty: 1 on 04/08/2019 by Billy Miramontes MD at [facility] Anterior: Spine Cervical [employer] INC 1868-01-014 / / Explanted Type Area Chaser Tar Device Identifier Shelf Expiration Date Model / Serial / Lot Screws Explanted:Qty: 6 on 04/06/2020 by Billy Miramontes MD at [facility] Posterior: Spine Lumbar Caps Explanted:Qty: 6 on 04/06/2020 by Billy Miramontes MD at [facility] Posterior: Spine Lumbar Rods Explanted:Qty: 2 on 04/06/2020 by Billy Miramontes MD at [facility] Posterior: Spine Lumbar Advance Directives For more information, please contact: [phone] Latest Code Status on File Code Status Date Activated Date Inactivated Comments Full Code 04/08/2019 7:58 AM 04/08/2019 8:31 PM Thi s code status was ascertained in the following way: per living will or healthcare instructions . Care Teams Dirt Supervisor Relationship Specialty Start Date End Date Mishel Peñaloza NP [address] [facility] [place] [address] PCP - General Family Medicine 09/11/18
--- OUTSIDE RECORDS SUMMARY | 2025-03-28 08:15 | XMS_ITS | Encounter Summary ---
Author Organization [facility] Address [address] [facility] [address] [place] [address] Phone Care Team Providers Care Orthotic Aide Name Role Phone Mishel Peñaloza NP Primary Care Provider [phone] Billy Miramontes MD Unavailable [phone] Chris Stokes MD Unavailable [phone] Unknown, Unknown Primary Care Provider Umesh Barragan DO Primary Care Provider [phone] Umesh Pugh DO Unavailable Encounter Details Date Type Department Care Team (Late st Contact Info) Description 02/04/2021 Ancillary Orders [facility] Orthopedics & Sports Medicine [address] [place] [address] Danielle Blanca MD [address] [place] [address] Orthopedics & Sports Medicine, [facility] [place] [address] [email or web address] Social History Tobacco Use Types Packs/Day Years [...] high school, GED, job training, learning the Estonian language, technical skills, or developing parenting skills)? [...] Description 04/03/2025 8:00 AM EST Office Visit [facility] Orthopedics & Sports Medicine [address] [place] [address] Danielle Blanca MD [address] [place] [address] Orth[facility] [place] [address] documented as of this encounter Visit Diagnoses Not on filedocumented in this encounter Additional Health Concerns Assessment Noted Time PHQ-2 Depression Total Score: 0 11/06/19 21 3:06 PM EDT documented as of this encounter Care Teams Orthotic Aide Relationship Specialty Start Date End Date Mishel Peñaloza NP PCP - General Family Medicine 02/08/18 08/09/23 Unknown, Mariza, PCP - General 08/10/23 10/04/23 Umesh Pugh DO [address] [facility] [address] [place] [address] [email or web address] PCP - General Family Medicine 10/05/23 Billy Miramontes MD [address] [place] [address] Neurosurgery 03/24/20 Chris Stokes MD [address] [place] [address] [email or web address] Insurance Assigned Provider 08/21/21 05/21/22 Umesh Pugh DO [address] [facility] [address] [place] [address] [email or web address] Insurance Assigned Provider 08/18/24 documented as of this encounter Additional Source Comments The information contained in this document represents components of the legal health record. It is not the complete legal health record.[facility]
--- OUTSIDE RECORDS SUMMARY | 2025-03-28 08:15 | XMS_ITS | Encounter Summary ---
Author Organization [facility] Address [address] [facility] [address] [place] [address] Phone Care Team Providers Care Cp Bleacher Operator Name Role Phone Mishel Peñaloza NP Primary Care Provider [phone] Billy Miramontes MD Unavailable [phone] Chris Stokes MD Unavailable [phone] Unknown, Unknown Primary Care Provider Umesh Barragan DO Primary Care Provider [phone] Umesh Pugh DO Unavailable Encounter Details Date Type Department Care Team (Latest Contact Info) Description 02/04/2021 Ancillary Orders [address] [address] Danielle Blanca MD [address] [place] [address] Orthopedics & Sports Medicine, [facility]. [place], [place] [id number] [email or web address] Osteoarthritis of left shoulder, unspecified osteoarthritis type Social History Tobacco Use Types Packs/Day Years [...] high school, GED, job training, learning the Ecuadorean language, technical skills, or developing parenting skills)? [...] Description 04/03/2025 8:00 AM EST Office Visit [facility] Orthopedics & Sports Medicine [address] [place] [address] Danielle Blanca MD [address] [place] [address] Orth[facility] [place] [address] [email or web address] documented as of this encounter Visit Diagnoses Diagnosis Osteoarthritis of left shoulder, unspecified osteoarthritis type documented in this encounter Additional Health Concerns Assessment Noted Time PHQ-2 Depression Total Score: 0 11/06/19 21 3:06 PM EDT documented as of this encounter Care Teams Cp Bleacher Operator Relationship Specialty Start Date End Date Mishel Peñaloza NP PCP - General Family Medicine 02/08/18 08/09/23 Unknown, Mariza, PCP - General 08/10/23 10/04/23 Umesh Pugh DO [address] [place] [address] [address] [place] [address] [email or web address] PCP - General Family Medicine 10/05/23 Billy Miramontes MD [address] [place] [address] Neurosurgery 03/24/20 Chris Stokes MD [address] [place] [address] [email or web address] Insurance Assigned Provider 08/21/21 05/21/22 Umesh Pugh DO [address] [place] [address] [address] [place] [address] [email or web address] Insurance Assigned Provider 08/18/24 documented as of this encounter Additional Source Comments The information contained in this document represents components of the legal health record. It is not the complete legal health record.[facility]
--- OUTSIDE RECORDS SUMMARY | 2025-03-28 08:16 | XMS_ITS | Encounter Summary ---
Author Organization [facility] Address [address] [facility] [address] [place] [address] Phone Care Team Providers Care Contact Lens Technician Name Role Phone Mishel Peñaloza NP Primary Care Provider [phone] Billy Miramontes MD Unavailable [phone] Chris Stokes MD Unavailable [phone] Unknown, Unknown Primary Care Provider Uemsh Barragan DO Primary Care Provider [phone] Umesh Pugh DO Unavailable Encounter Details Date Type Department Care Team (Late st Contact Info) Description 12/30/2020 Ancillary Orders [facility] [address] [place] [address] System, Provider Not In, [place] [address] Social History Tobacco Use Types Packs/Day Years [...] high school, GED, job training, learning the Icelandic language, technical skills, or developing parenting skills)? [...] Description 04/03/2025 8:00 AM EST Office Visit [facility] Orthopedics & Sports Medicine [address] [place] [address] Danielle Blanca MD [address] [place] [address] Orthopedics & Sports Medicine, [place] [address] [email or web address] documented as of this encounter Results * MRI Spine (Bone) [...] documented as of this encounter Care Teams Contact Lens Technician Relationship Specialty Start Date End Date Mishel Peñaloza NP PCP - General Family Medicine 02/08/18 08/09/23 Unknown, Mariza, PCP - General 08/10/23 10/04/23 Umesh Pugh DO [address] [place] [address] 7 [place] [address] [email or web address] PCP - General Family Medicine 10/05/23 Billy Miramontes MD [address] [place] [address] Neurosurgery 03/24/20 Chris Stokes MD [address] [place] [address] [email or web address] Insurance Assigned Provider 08/21/21 05/21/22 Umesh Pugh DO [address] [place] [address] 7 [place] [address] [email or web address] Insurance Assigned Provider 08/18/24 documented as of this encounter Additional Source Comments The information contained in this document represents components of the legal health record. It is not the complete legal health record.[facility]
--- OUTSIDE RECORDS SUMMARY | 2025-03-28 08:16 | XMS_ITS | Encounter Summary ---
Author Organization [facility] Address [address] [facility] [address] [place] [address] Phone Care Team Providers Care Biomedical Engineering Director Name Role Phone Mishel Peñaloza NP Primary Care Provider [phone] Billy Miramontes MD Unavailable [phone] Chris Stokes MD Unavailable [phone] Unknown, Unknown Primary Care Provider Umesh Barragan DO Primary Care Provider Umesh Pugh DO Unavailable Encounter Details Date Type Department Care Team (Latest Contact Info) Description 12/20/2021 Ancillary Orders [address] [address] Danielle Blanca MD [address] [place] [address] Orthopedics & Sports Medicine, [place], [place] [id number] [email or web address] Osteoarthritis of left shoulder, unspecified osteoarthritis type Social History Tobacco Use Types Packs/Day Years Used Date Smoking Tobacco: Every Day Cigarettes 1 35 Started: 03/19/1984; Last attempted to quit: 03/19/2019 Smokeless Tobacco: Never Alcohol Use Standard Drinks/Week Comments No 0 (1 standard drink = 0.6 oz pur e alcohol) Child or Family Care Answer Date Record ed Do you have problems with on e of the following making it difficult for you to work, study, or receive health care? No 11/13/2021 Education Answer Date Recorded Are you interested in help w ith more adult education (for example, completing high school, GED, job training, learning the Colombian language, technical skills, or developing parenting skills)? No 11/13/2021 Food Answer Date Recorded Within the past 6 months we worried whether our food would run out before we got money to buy more. Never True 11/13/2021 Within the past 6 months the food we bought just didn't last and we didn't have enough money to get more. Never True Residential Stability Answer Date Recor ded What is your housing situation today? I have ekaterina sing 11/13/2021 How many times have you move d in the past 12 months? Zero (I did not move) 11/13/2021 Paying for Meds Answer Date Recorded Do you have trouble paying for medicines? No 11/13/2021 Paying Utility Bills Answer Date Record ed Do you have trouble paying your heating or elect ricity bill? No 11/13/2021 Transportation Answer Date Recorded Has the lack of transportati on kept you from medical appointments or from getting medications? No 11/13/2021 Unemployment Answer Date Recorded Are you currently unemployed or working on a part-time or temporary basis, and looking for work? No 11/13/2021 Sex and Gender Information Value Date Recorded Sex Assigned at Male 02/13/2025 4:23 AM EDT Legal Sex Male 10:32 PM EDT Gender Identity Male 02/13/2025 4:23 AM EDT Sexual Orientation Don't know 02/13/2025 4: 23 AM EDT documented as of this encounter Plan of Treatment Upcoming Encounters Date Type Department Care Team (Late st Contact Info) Description 04/03/2025 8:00 AM EST Office Visit [facility] Orthopedics & Sports Medicine [address] [place] [address] Danielle Blanca MD [address] [place] [address] Orthopedics & Sports Medicine, [facility] [place] [address] Pending Results Name Type Priority Associated Diagnoses Date /Time FL Guidance Needle Placement Non-Spine Imaging Routine Osteoarthritis of left shoulder, unspecified osteoarthritis type 12/21/2021 9:02 AM EDT Scheduled Orders Name Type Priority Associated Diagnoses Orde r Schedule FL Guidance Needle Placement Non-Spine Imaging Routine Osteoarthritis of left shoulder, unspecified osteoarthritis type 1 Occurrences starting 12/20/2021 until 03/22/2022 documented as of this encounter Visit Diagnoses Diagnosis Osteoarthritis of left shoulder, unspecified osteoarthritis type documented in this encounter Additional Health Concerns Assessment Noted Time PHQ-2 Depression Total Score: 0 11/14/19 9:01 AM EDT documented as of this encounter Care Teams Biomedical Engineering Director Relationship Specialty Start Date End Date Mishel Peñaloza NP PCP - General Family Medicine 02/08/18 08/09/23 Unknown, Unknown, PCP - General 08/10/23 10/04/23 Umesh Pugh DO [address] [place] [address] 7 [place] [address] PCP - General Family Medicine 10/05/23 Billy Miramontes MD [address] [place] [address] Neurosurgery 03/24/20 Chris Stokes MD [address] [place] [address] Insurance Assigned Provider 08/21/21 05/21/22 Umesh Pugh DO [address] [place] [address] [address] [place] [address] [email or web address] Insurance Assigned Provider 08/18/24 documented as of this encounter Additional Source Comments The information contained in this document represents components of the legal health record. It is not the complete legal health record.[facility]
--- OUTSIDE RECORDS SUMMARY | 2025-03-28 08:16 | XMS_ITS | Encounter Summary ---
Author Organization [facility] Address [address] [facility] [address] [place] [address] Phone Care Team Providers Care Induction Heat Treater Name Role Phone Mishel Peñaloza NP Primary Care Provider [phone] Billy Miramontes MD Unavailable [phone] Chris Stokes MD Unavailable [phone] Unknown, Unknown Primary Care Provider Umesh Barragan DO Primary Care Provider [phone] Umesh Pugh DO Unavailable Encounter Details Date Type Department Care Team (Late st Contact Info) Description 12/20/2021 Ancillary Orders [facility] Orthopedics & Sports Medicine [address] [place] [address] Danielle Blanca MD [address] [place] [address] Orthopedics & Sports Medicine, [place] [address] [email or web address] Social History Tobacco Use Types Packs/Day [...] high school, GED, job training, learning the Argentine language, technical skills, or developing parenting skills)? [...] Description 04/03/2025 8:00 AM EST Office Visit [facility] Orthopedics & Sports Medicine [address] [place] [address] Danielle Blanca MD [address] [place] [address] Orthopedics & Sports Medicine, [place] [address] documented as of this encounter Visit Diagnoses Not on filedocumented in this encounter Additional Health Concerns Assessment Noted Time PHQ-2 Depression Total Score: 0 11/14/19 22 9:01 AM EDT documented as of this encounter Care Teams Induction Heat Treater Relationship Specialty Start Date End Date Mishel Peñaloza NP [email or web address] PCP - General Family Medicine 02/08/18 08/09/23 Unknown, Unknown, PCP - General 08/10/23 10/04/23 Umesh Pugh DO [address] [place] [address] 7 [place] [address] [email or web address] PCP - General Family Medicine 10/05/23 Billy Miramontes MD [address] [place] [address] Neurosurgery 03/24/20 Chris Stokes MD [address] [place] [address] [email or web address] Insurance Assigned Provider 08/21/21 05/21/22 Umesh Pugh DO [address] [place] [address] 7 [place] [address] [email or web address] Insurance Assigned Provider 08/18/24 documented as of this encounter Additional Source Comments The information contained in this document represents components of the legal health record. It is not the complete legal health record.[facility]
--- OUTSIDE RECORDS SUMMARY | 2025-03-28 08:17 | XMS_ITS | Encounter Summary ---
Author Organization [facility] Address [address] [facility] [address] [place] [address] Phone Care Team Providers Care Guide Foreign Tour Name Role Phone Mishel Peñaloza NP Primary Care Provider [phone] Billy Miramontes MD Unavailable [phone] Chris Stokes MD Unavailable [phone] Unknown, Unknown Primary Care Provider Umesh Barragan DO Primary Care Provider [phone] Umesh Pugh DO Unavailable Encounter Details Date Type Department Care Team (Late st Contact Info) Description 09/24/2020 Ancillary Orders [facility] Orthopedics & Sports Medicine [address] [place] [address] Danielle Blanca MD [address] [place] [address] Orthopedics & Sports Medicine, [facility] [place] [address] [email or web address] Social History Tobacco Use Types Packs/Day Years [...] Description 04/03/2025 8:00 AM EST Office Visit [facility] Orthopedics & Sports Medicine [address] [place] [address] Danielle Blanca MD [address] [place] [address] Orthopedics & Sports Medicine, [facility] [place] [address] documented as of this encounter Visit Diagnoses Not on filedocumented in this encounter Additional Health Concerns Assessment Noted Time PHQ-2 Depression Total Score: 0 12/29/19 19 9:07 AM EDT documented as of this encounter Care Teams Guide Foreign Tour Relationship Specialty Start Date End Date Mishel Peñaloza NP PCP - General Family Medicine 02/08/18 08/09/23 Unknown, Unknown, PCP - General 08/10/23 10/04/23 Umesh Pugh DO [address] [place] [address] PCP - General Family Medicine 10/05/23 Billy Miramontes MD [address] [place] [address] Neurosurgery 03/24/20 Chris Stokes MD [address] [place] [address] Insurance Assigned Provider 08/21/21 05/21/22 Umesh Pugh DO [address] [place] [address] 7 [place] [address] [email or web address] Insurance Assigned Provider 08/18/24 documented as of this encounter Additional Source Comments The information contained in this document represents components of the legal health record. It is not the complete legal health record.[facility]
--- OUTSIDE RECORDS SUMMARY | 2025-03-28 08:17 | XMS_ITS | Encounter Summary ---
Author Organization [facility] Address [address] [facility] [address] [place] [address] Phone Care Team Providers Care Press Machine Feeder Name Role Phone Mishel Peñaloza NP Primary Care Provider [phone] Billy Miramontes MD Unavailable [phone] Chris Stokes MD Unavailable [phone] Unknown, Unknown Primary Care Provider Umesh Barragan DO Primary Care Provider [phone] Umesh Pugh DO Unavailable Encounter Details Date Type Department Care Team (Late st Contact Info) Description 07/26/2021 Ancillary Orders [facility] Orthopedics & Sports Medicine [address] [place] [address] Danielle Blanca MD [address] [place] [address] Orthopedics & Sports Medicine, [facility] [place] [address] [email or web address] Social History Tobacco Use Types Packs/Day Years [...] high school, GED, job training, learning the Portuguese language, technical skills, or developing parenting skills)? [...] Description 04/03/2025 8:00 AM EST Office Visit [facility] Orthopedics & Sports Medicine [address] [place] [address] Danielle Blanca MD [address] [place] [address] Orthopedics & Sports [place] [address] documented as of this encounter Visit Diagnoses Not on filedocumented in this encounter Additional Health Concerns Assessment Noted Time PHQ-2 Depression Total Score: 0 11/06/19 21 3:06 PM EDT documented as of this encounter Care Teams Press Machine Feeder Relationship Specialty Start Date End Date Mishel Peñaloza NP PCP - General Family Medicine 02/08/18 08/09/23 Unknown, Mariza, PCP - General 08/10/23 10/04/23 Umesh Pugh DO [address] [facility] 7 [place] [address] [email or web address] PCP - General Family Medicine 10/05/23 Billy Miramontes MD [address] [place] [address] Neurosurgery 03/24/20 Chris Stokes MD [address] [place] [address] [email or web address] Insurance Assigned Provider 08/21/21 05/21/22 Umesh Pugh DO [address] [facility] 7 [place] [address] [email or web address] Insurance Assigned Provider 08/18/24 documented as of this encounter Additional Source Comments The information contained in this document represents components of the legal health record. It is not the complete legal health record.[facility]
--- OUTSIDE RECORDS SUMMARY | 2025-03-28 08:17 | XMS_ITS | Encounter Summary ---
Author Organization [facility] Address [address] [facility] [address] [place] [address] Phone Care Team Providers Care Chief Deputy Sheriff Name Role Phone Mishel Peñaloza NP Primary Care Provider Billy Miramontes MD Unavailable [phone] Chris Stokes MD Unavailable [phone] Unknown, Unknown Primary Care Provider Umesh Barragan DO Primary Care Provider [phone] Umesh Pugh DO Unavailable Encounter Details Date Type Department Care Team (Latest Contact Info) Description 07/26/2021 Ancillary Orders [address] [address] Danielle Blanca MD [address] [place] [address] Orthopedics & Sports Medicine, [facility]. [place], [place] [id number] [email or web address] Osteoarthritis of left shoulder, unspecified osteoarthritis [...] high school, GED, job training, learning the Algerian language, technical skills, or developing parenting skills)? [...] Description 04/03/2025 8:00 AM EST Office Visit [facility] Orthopedics & Sports Medicine [address] [place] [address] Danielle Blanca MD [address] [place] [address] Orthopedics & Sports Medicine, [place] [address] Pending Results Name Type Priority Associated Diagnoses Date /Time FL Guidance Needle Placement Non-Spine Imaging Routine Osteoarthritis of left shoulder, unspecified osteoarthritis type 07/27/2021 9:16 AM EDT Scheduled Orders Name Type Priority Associated Diagnoses Orde r Schedule FL Guidance Needle Placement Non-Spine Imaging Routine Osteoarthritis of left shoulder, unspecified osteoarthritis type 1 Occurrences starting 07/26/2021 until 10/26/2021 documented as of this encounter Visit Diagnoses Diagnosis Osteoarthritis of left shoulder, unspecified osteoarthritis type documented in this encounter Additional Health Concerns Assessment Noted Time PHQ-2 Depression Total Score: 0 11/06/19 21 3:06 PM EDT documented as of this encounter Care Teams Chief Deputy Sheriff Relationship Specialty Start Date End Date Mishel Peñaloza NP [email or web address] PCP - General Family Medicine 02/08/18 08/09/23 Unknown, Unknown, PCP - General 08/10/23 10/04/23 Umesh Pugh DO [address] [place] [address] 7 [place] [address] [email or web address] PCP - General Family Medicine 10/05/23 Billy Miramontes MD [address] [place] [address] Neurosurgery 03/24/20 Chris Stokes MD [address] [place] [address] [email or web address] Insurance Assigned Provider 08/21/21 05/21/22 Umesh Pugh DO [address] [place] [address] 7 [place] [address] [email or web address] Insurance Assigned Provider 08/18/24 documented as of this encounter Additional Source Comments The information contained in this document represents components of the legal health record. It is not the complete legal health record.[facility]
--- OUTSIDE RECORDS SUMMARY | 2025-03-28 08:17 | XMS_ITS | Encounter Summary ---
Author Organization [facility] [place] [facility] Address [address] [place] [address] [place] [address] Phone Care Team Providers Care Outside Dealer Sales Representative Name Role Phone Mishel Peñaloza NP Primary Care Provider Billy Miramontes MD Unavailable [phone] Chris Stokes MD Unavailable [phone] Unknown, Unknown Primary Care Provider Umesh Barragan DO Primary Care Provider [phone] mUesh Pugh DO Unavailable Encounter Details Date Type Department Care Team (Late st Contact Info) Description 09/24/2020 Ancillary Orders [address] [address] Danielle Blanca MD [address] [place] [address] Orthopedics & Sports Medicine, [place] [address] [email or web address] Left shoulder pain, unspecified chronicity Social History Tobacco Use Types Packs/Day Years [...] Description 04/03/2025 8:00 AM EST Office Visit [facility] Orthopedics & Sports Medicine [address] [place] [address] Danielle Blanca MD [address] [place] [address] Orthopedics & Sports Medicine, [place] [address] [email or web address] Pending Results Name Type Priority Associated Diagnoses Date /Time FL Guidance Needle Placement Non-Spine Imaging Routine Left shoulder pain, unspecified chronicity 09/29/2020 7:51 AM EDT Scheduled Orders Name Type Priority Associated Diagnoses Orde r Schedule FL Guidance Needle Placement Non-Spine Imaging Routine Left shoulder pain, unspecified chronicity 1 Occurrences starting 09/24/2020 until 12/25/2020 documented as of this encounter Visit Diagnoses Diagnosis Left shoulder pain, unspecified chronicity documented in this encounter Additional Health Concerns Assessment Noted Time PHQ-2 Depression Total Score: 0 12/29/19 9:07 AM EDT documented as of this encounter Care Teams Outside Dealer Sales Representative Relationship Specialty Start Date End Date Mishel Peñaloza NP PCP - General Family Medicine 02/08/18 08/09/23 Unknown, Unknown, PCP - General 08/10/23 10/04/23 Umesh Pugh DO [address] [place] [address], [address] [place] [address] [email or web address] PCP - General Family Medicine 10/05/23 Billy Miramontes MD [address] [place] [address] Neurosurgery 03/24/20 Chris Stokes MD [address] [place] [address] [email or web address] Insurance Assigned Provider 08/21/21 05/21/22 Umesh Pugh DO [address] [place] [address] 7 [place] [address] [email or web address] Insurance Assigned Provider 08/18/24 documented as of this encounter Additional Source Comments The information contained in this document represents components of the legal health record. It is not the complete legal health record.[facility] [place] [facility]
--- OUTSIDE RECORDS SUMMARY | 2025-03-28 08:18 | XMS_ITS | Encounter Summary ---
Author Organization [facility] Address [address] [place] [address] Phone Care Team Providers Care Roofing Machine Tender Name Role Phone Billy Miramontes MD Unavailable [phone] SahUmesh longoria DO Primary Care Provider [phone] Umesh Pugh DO Unavailable Encounter Details Date Type Department Care Team (Latest Contact Info) Description 11/18/2024 Ancillary Orders Social History Tobacco Use Types Packs/Day Years [...] high school, GED, job training, learning the [place] language, technical skills, or developing parenting skills)? No 11/23/2022 Are you concerned about learning? Not on file 11/23/2022 No 11/23/2022 Yes 11/23/2022 Food Answer Date Recorded Within the past 6 months we worried whether our food would run out before we got money to buy more. Never True 11/23/2022 Within the past 6 months the food we bought just didn't last and we didn't have enough money to get more. Never True 07/12/202 3 Residential Stability Answer Date Recor ded What [...] 11/13/2021 Digital Access Answer Date Recorded No 11/23/2022 Yes 11/23/2022 Do you have reliable internet access at home? Ye s 11/23/2022 Do you have a device (e.g., phone, tablet, computer) with a working camera? Yes 11/23/2022 Intimate Partner Violence Answer Date R ecorded Denied Basic Needs Not on file 07/23/2024 In the past 12 months have y ou been in a relationship with a person who hurts, threatens, or tries to control you? No 07/23/2024 Worried food would run out Not on file 07/23 In the past 12 months have y ou been in a relationship with a person who hurts, threatens, or tries to control you? No 07/23/2024 Sex and Gender Information Value Date Recorded [...] 04/03/2025 8:00 AM EST Office Visit [facility] Medicine [address] [place] [address] Danielle Blanca MD [address] [place] [address] Orthopedics & Sports Medicine, [facility]. [place], [place] [id number] [email or web address] documented as of this encounter Visit Diagnoses Not on filedocumented in this encounter Additional Health Concerns Assessment Noted Time PHQ-2 Depression Total Score: 0 07/24/19 25 7:58 AM EDT documented as of this encounter Care Teams Roofing Machine Tender Relationship Specialty Start Date End Date Umesh Pugh DO [address] [facility], [facility] 7 [place] [address] [email or web address] PCP - General Family Medicine 10/05/23 Billy Miramontes MD [address] [place] [address] Neurosurgery 03/24/20 Umesh Pugh DO [address] [facility], [facility] 7 [place] [address] [email or web address] Insurance Assigned Provider 08/18/24 documented as of this encounter Additional Source Comments The information contained in this document represents components of the legal health record. It is not the complete legal health record.[facility]
--- OUTSIDE RECORDS SUMMARY | 2025-03-28 08:18 | XMS_ITS | Encounter Summary ---
Author Organization [facility] Address [address] [facility] [address] [place] [address] Phone Care Team Providers Care Inspector General Name Role Phone Mishel Peñaloza NP Primary Care Provider [phone] Billy Miramontes MD Unavailable [phone] Chris Stokes MD Unavailable [phone] Unknown, Unknown Primary Care Provider Umesh Barragan DO Primary Care Provider [phone] Umesh Pugh DO Unavailable Encounter Details Date Type Department Care Team (Late st Contact Info) Description 03/11/2022 Procedure Pass OR Admitting Dept - [facility] [address] [place] [id number] Social History Tobacco Use Types Packs/Day Years Used Date Smoking Tobacco: Every Day Cigarettes 1 38.9 Started: 1984 Smokeless Tobacco: Never Alcohol Use Standard Drinks/Week [...] high school, GED, job training, learning the Sammarinese language, technical skills, or developing parenting skills)? [...] housing situation today? I have ekaterina elmore 11/13/2021 How many times have you move [...] Description 04/03/2025 8:00 AM EST Office Visit [facility] Orthopedics & Sports Medicine [address] [place] [address] Danielle Blanca MD [address] [place] [address] Orthopedics & Sports Medicine, [facility] [place] [address] documented as of this encounter Visit Diagnoses Not on filedocumented in this encounter Additional Health Concerns Assessment Noted Time PHQ-2 Depression Total Score: 0 11/14/19 9:01 AM EDT documented as of this encounter Care Teams Inspector General Relationship Specialty Start Date End Date Mishel Peñaloza NP PCP - General Family Medicine 02/08/18 08/09/23 Unknown, Unknown, PCP - General 08/10/23 10/04/23 Umesh Pugh DO [address] [facility] 7 [place] [address] [email or web address] PCP - General Family Medicine 10/05/23 Billy Miramontes MD [address] [place] [place] [address] Neurosurgery 03/24/20 Chris Stokes MD [address] [place] [address] [email or web address] Insurance Assigned Provider 08/21/21 05/21/22 Umesh Pugh DO [address] [facility] 7 [place] [address] [email or web address] Insurance Assigned Provider 08/18/24 documented as of this encounter Additional Source Comments The information contained in this document represents components of the legal health record. It is not the complete legal health record.[facility]
--- OUTSIDE RECORDS SUMMARY | 2025-03-28 08:18 | XMS_ITS | Encounter Summary ---
Author Organization [facility] Address [address] [facility] [address] [place] [address] Phone Care Team Providers Care Parts Department Manager Name Role Phone Mishel Peñaloza NP Primary Care Provider [phone] Billy Miramontes MD Unavailable [phone] Unknown, Unknown Primary Care Provider Umesh Barragan DO Primary Care Provider [phone] Umesh Pugh DO Unavailable Encounter Details Date Type Department Care Team (Latest Contact Info) Description 02/14/2023 Ancillary Orders [facility] Medicine [address] [place] [address] Umesh Salazar PA-C [address] [place] [address] Orthopedics & Sports Medicine, [facility] [place], [place] [id number] Pain, joint, shoulder, right Social History Tobacco Use Types Packs/Day Years Used Date Smoking Tobacco: Every Day Cigarettes 0.5 38.9 Started: 1984 Smokeless Tobacco: Never Comments:10 cigarettes daily Alcohol Use Standard Drinks/Week Comments Yes 0 (1 standard drink = 0.6 oz [...] high school, GED, job training, learning the Qatari language, technical skills, or developing parenting skills)? [...] computer) with a working camera? Yes 11/23/2022 Sex and Gender Information Value Date Recorded Sex Assigned at Male 02/13/2025 4:23 AM EDT Legal Sex Male 10:32 PM EDT Gender Identity Male 02/13/2025 4:23 AM EDT Sexual Orientation Don't know 02/13/2025 4: 23 AM EDT documented as of this encounter Plan of Treatment Upcoming Encounters Date Type Department Care Team (Late st Contact Info) Description 04/03/2025 8:00 AM EST Office Visit [facility] Orthopedics & Sports Medicine [address] [place] [address] Danielle Blanca MD [address] [place] [address] Orthopedics & Sports Medicine, [place] [address] [email or web address] documented as of this encounter Results * XR SHOULDER 2 VIEWS (LEFT) (02/14/2023 10:33 AM EDT) Narrative SYSTEMGENERATED, DOCUMENTATION - 02/14/2023 10:33 AM EDT This image report has been auto-finalized and has not been read by a Radiologist. Interpretation has been included in the provider encounter note for this date of service. Umesh BENAVIDEZ-C IMG XR UPPER EXTREMITY Final Result * XR ELBOW 3 OR MORE VIEWS (LEFT) (02/14/2023 10:33 AM EDT) Narrative SYSTEMGENERATED, DOCUMENTATION - 02/14/2023 10:33 AM EDT This image report has been auto-finalized and has not been read by a Radiologist. Interpretation has been included in the provider encounter note for this date of service. Umesh BENAVIDEZ-C IMG XR UPPER EXTREMITY Final Result documented in this encounter Visit Diagnoses Diagnosis Pain, joint, shoulder, right Pain, joint, shoulder, right Pain, joint, shoulder, right documented in this encounter Additional Health Concerns Assessment Noted Time PHQ-2 Depression Total Score: 0 11/24/19 23 8:32 AM EDT documented as of this encounter Care Teams Parts Department Manager Relationship Specialty Start Date End Date Mishle Peñaloza NP [email or web address] PCP - General Family Medicine 02/08/18 08/09/23 Unknown, Unknown, PCP - General 08/10/23 10/04/23 Umesh Pugh DO [address] [place] [address], [address] [place] [address] [email or web address] PCP - General Family Medicine 10/05/23 Billy Miramontes MD [address] [place] [address] Neurosurgery 03/24/20 Umesh Pugh DO [address] [place] [address] 7 [place] [address] [email or web address] Insurance Assigned Provider 08/18/24 documented as of this encounter Additional Source Comments The information contained in this document represents components of the legal health record. It is not the complete legal health record.[facility]
--- OUTSIDE RECORDS SUMMARY | 2025-03-28 08:18 | XMS_ITS | Clinical Summary ---
Author Organization [facility] Address [address] [place] [id number] Phone Care Team Providers Care Shipping Weigher Name Role Phone Billy Miramontes MD Unavailable [phone] SahdUmesh DO Primary Care Provider [phone] SahUmesh longoria DO Unavailable Allergies Active Allergy Reactions Criticality Noted Date Comments Gabapentin Diarrhea 03/21/2018 Hydrochlorothiazide High 02/20/2008 Other reaction(s): Numbness, tingling or swelling of the lips, tongue or mouth Numbness of lips, tongue and limbs Sulfa (Sulfonamide Antibiotics) Swelling,Anaphylax is High 03/21/2018 Sulindac Other (See Comments) 09/28/2011 Nose bleeds Medications Medication-Free Text Protein powder Active therapeutic multivitamin tablet Take 1 tablet by mouth daily. 90 tablet 3 2 Active atorvastatin (LIPITOR) 40 MG tabletIndications:M ixed hyperlipidemia Take 1 tablet (40 mg total) by mouth daily. 90 tablet 3 5 Active sertraline (ZOLOFT) 100 MG tabletIndications:M ixed obsessional thoughts and acts Take 3 tablets (300 mg total) by mouth daily. 270 tablet 3 5 Active ARIPiprazole (ABILIFY) 5 MG tablet Take 1 tablet by mouth every morning. 5 Active pregabalin (LYRICA) 75 MG capsuleIndications: Left hip pain,Left hand pain Take 1 capsule (75 mg total) by mouth 3 (three) times a day. 90 capsule 2 Active amoxicillin (AMOXIL) 500 MG capsule Take 1 capsule (500 mg total) by mouth 3 (three) times a day. 21 capsule Active oxyCODONE 5 MG immediate release tablet Take 1 tablet (5 mg total) by mouth every 4 (four) hours as needed for pain (specific location in comments). Partial fill ok 5 tablet Active Hospital, Clinic, or Other Facility Administered Medication Ordered Dose Route Frequency Start Date End Date Status triamcinolone acetonide (KENALOG-40) 40 mg/mL injection 20 mg 20 mg See Adm Inst Once 03/27/2025 03/27/2025 Ended lidocaine (XYLOCAINE) 1% injection 0.5 mL 0.5 mL See Adm Inst Once 03/27/2025 03/27/2025 Ended Active Problems Problem Noted Date Diagnosed Date Chronic pain of right knee 01/10/2025 Assessment & Plan (01/10/2025 10:10 AM EDT): Jose has right knee pain and swelling-decreased in range of motion. I ordered an x-ray to further investigate. I will update him with the results. Orthostatic hypotension 11/14/2024 Left hip pain 10/11/2024 Assessment & Plan (01/10/2025 10:10 AM EDT): Lyrica refilled today. This medication is helpful. Assessment & Plan (10/24/2024 9:54 AM EDT): Harpreet presents for left hip pain-improving with the Lyrica-increase this to 3 times daily as this is working well but the medication wears off after 6 to 7 hours. I ordered an x-ray of the lumbar spine to further investigate this-last lumbar spine x-ray was in 2019. I informed him to call if there are any other issues or concerns. He understands and agrees. I have maintained a long-term relationship with the patient, overseeing the care of their chronic pain. This has significantly influenced my decision-making and treatment plans during today's encounter. Assessment & Plan (10/11/2024 10:21 AM EDT): Harpreet presents for left hip pain. I ordered an x-ray to further investigate this-I will update him with the results. I informed him to call if there are any other issues or concerns. He understands and agrees. Medicare annual wellness visit, subsequent 07/23 Assessment & Plan (07/23/2024 8:11 AM EDT): Harpreet Ortega is a 59 y.o. year old male presenting for his annual medicare wellness exam. I reviewed the adult health questionnaire -electronically filled out- today. he will go for his above lab work and I will update him with the results. he has a healthy diet and exercise regimen. he will follow up in a year for their annual medicare wellness exam. he understand and agrees. Left hand weakness 07/23/2024 Visit for suture removal 01/24/2024 Assessment & Plan (01/24/2024 8:35 AM EDT): Jose presents for suture removal today. Both sutures were removed today in the office-no complications. I reviewed ways to decrease scarring with vitamin E. He will call if there are any other issues or concerns. He understands and agrees. Poor dentition 01/24/2024 Assessment & Plan (01/24/2024 8:34 AM EDT): Jose has poor dentition and he is looking for an oral surgeon. I put a referral to [facility] oral surgery for a consult. I informed him to call if he would like to see anybody else. He understands and agrees. Need for prophylactic vaccin ation and inoculation against influenza 01/24/2024 Assessment & Plan (01/24/2024 8:35 AM EDT): Jose is due for a flu vaccine today-he was in agreement with this. This is given today in the office-no complications. He was appreciative. Chronic pain of left knee 12/12/2023 Assessment & Plan (01/24/2024 8:35 AM EDT): Jose has ongoing knee pain but he would like to hold off on this and x-ray imaging as he would like to fix his teeth first-referral placed to oral surgery for a consult today. He was appreciative. Assessment & Plan (12/12/2023 11:45 AM EDT): Harpreet has worsening left knee pain and discomfort. He has not had an x-ray done recently thus ordered this today and I will update him with the result. I put a referral into Dr. Uriarte-at his request. I gave him exercises to start on. I informed him to call if there are any other issues or concerns. He understands and agrees. Left hand pain 12/12/2023 Assessment & Plan (01/10/2025 10:10 AM EDT): Ongoing hand pain-she will see his surgeon next month-I refilled his Lyrica. He notes that this is a helpful medication for him. Follow-up as needed. He understands and agrees. Assessment & Plan (10/24/2024 9:54 AM EDT): Harpreet has ongoing left hand pain-he will see the specialist in the near future for possible injection. Lyrica is helpful-increase this-please see plan left hip pain for further detail. Follow-up in 3 months. He will call if there are any other issues or concerns. He understands and agrees. Assessment & Plan (10/11/2024 10:22 AM EDT): Harpreet presents for left thumb pain-getting worse. He was seen by the hand specialist for this and was diagnosed with a hand spur-he was given guidance that he may benefit from a steroid injection. He will call the specialist for steroid injection. He has tried gabapentin in the past for nerve related pains however he has side effects of this. I gave him guidance that we can try Lyrica to see if this will help his pains without any other side effects-guidance given. He would like to try Lyrica to see if this helps. I sent this to his pharmacy. He will call if there are any issues or concerns. Follow-up in 3 months for his annual. He understands and agrees with this plan of action. Assessment & Plan (12/12/2023 11:44 AM EDT): Harpreet has ongoing left thumb-hand pain. I gave him some exercises to treat for tendinitis and I referred him to orthopedics at [facility] at his request. I informed him to call if there are any other issues or concerns. He understands and agrees. Screening for prostate cancer 10/12/2023 Assessment & Plan (10/12/2023 10:16 AM EDT): Lab work pended prior to next CPE. Screening for condition 10/12/2023 Assessment & Plan (10/12/2023 10:17 AM EDT): Lab work pended prior to next CPE. Dental infection 09/14/2023 Assessment & Plan (01/24/2024 8:34 AM EDT): Jose is taking Augmentin for his dental infection at present-I put a referral into the [facility] oral surgery for a consult. He was appreciative. Assessment & Plan (10/12/2023 10:11 AM EDT): Resolved dental infection S/P antibiotics. Assessment & Plan (09/14/2023 3:47 PM EDT): Harpreet presents as a new patient to [facility]. He has extremely poor dentition and I strongly encouraged him to see a dentist/oral surgeon. His plan is to get removable upper and lower teeth in the future. He presents with a dental infection today and I treated him with Augmentin-to be taken as directed. I gave guidance to rinse his mouth out with salt water rinses and he notes that he has been using Listerine. I informed him to call if this gets worse or if his symptoms do not improve. Follow-up with new PCP in a month. He understands and agrees. Acute bilateral low back pain without sciatica 1 Assessment & Plan (10/24/2024 9:51 AM EDT): Xray of back ordered today, last was in 2019. Assessment & Plan (10/11/2024 10:23 AM EDT): Harpreet has ongoing back pain-he is wearing his brace as directed. He is undergoing his exercises at home and using heat to the site. He will call if there are any other issues or concerns. He understands and agrees. I have maintained a long-term relationship with the patient, overseeing the care of their back pain. This has significantly influenced my decision-making and treatment plans during today's encounter. Assessment & Plan (02/15/2023 1:47 PM EDT): Acute back pain in pt with known back hx, and back surgical hx. No red flag warnings- We discussed PT, he is agreeable. He has used tizanidine in the past- I will give him a few tablets- to help with this acute phase- He was cautioned as to its effects. He will go to PT at [facility] in [place]- He will let us know if anything changes or worsen Need for influenza vaccination 02/15/2023 Assessment & Plan (02/15/2023 1:47 PM EDT): given S/P rotator cuff surgery 03/16/2022 Status post cervical spinal fusion 04/24/2019 Chronic left shoulder pain 08/24/2018 Mixed obsessional thoughts and acts 04/19/2018 Assessment & Plan (01/10/2025 10:09 AM EDT): Improved OCD while taking Zoloft and Abilify, no side effects. He is followed by his prescriber. He will call if there are any other issues or concerns. He understands and agrees. Assessment & Plan (07/23/2024 8:10 AM EDT): Harpreet is taking Zoloft 200 mg daily. This has overall improved his thought process-he will stay the course with this. I refilled this today. He was appreciative. I have maintained a long-term relationship with the patient, overseeing the care of their OCD. This has significantly influenced my decision-making and treatment plans during today's encounter. History of back surgery 03/21/2018 Mixed hyperlipidemia 03/21/2018 Assessment & Plan (01/10/2025 10:08 AM EDT): Stable on his Lipitor. Assessment & Plan (10/24/2024 9:51 AM EDT): Stable on his statin. Assessment & Plan (07/23/2024 8:09 AM EDT): Harpreet Ortega has hypercholesterolemia and he is taking the above medication as directed without any side effects. his most recent cholesterol labs were reviewed. he will follow up as directed. Assessment & Plan (12/12/2023 11:37 AM EDT): Harpreet is taking the statin. He will get lab work today. Assessment & Plan (10/12/2023 10:16 AM EDT): Harpreet Ortega has hypercholesterolemia and he is taking the above medication as directed without any side effects. I ordered repeat blood work to be done prior to his physical this summer. he will follow up as directed. Nicotine dependence, cigarettes, uncomplicated 1 05/21/2017 Anxiety 12/15/2007 Assessment & Plan (01/10/2025 10:09 AM EDT): Improved while taking Zoloft and Abilify. Currently stable. No side effects. Assessment & Plan (10/24/2024 9:51 AM EDT): Stable. Assessment & Plan (01/24/2024 8:34 AM EDT): Stable while taking his Zoloft. Assessment & Plan (12/12/2023 11:44 AM EDT): Harpreet has been experiencing more anxiety. He is taking his Zoloft as directed. I referred him back to Dr. Calle. He was appreciative. He will call if there are any other issues or concerns. Follow-up for his physical in the fall. 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) 03/21/2025 4:51 PM EST - 03/21/2025 11:59 PM EST Hospital Encounter [address] [place] [address] Guru Nino PA-C Discharge Disposition: Home or Self Care 03/13/2025 1:40 PM EDT Office Visit [facility] at [address] [phone] Guru Nino PA-C Pain, joint, knee, right (Primary Dx); Instability of knee joint, unspecified laterality 03/13/2025 12:26 PM EDT - 03/13/2025 11:59 PM EDT Hospital Encounter [address] [address] Guru Nino PA-C Discharge Disposition: Home or Self Care 03/13/2025 Procedure Pass [address] [place] [address] 02/13/2025 4:17 AM EDT - 02/13/2025 4:33 AM EDT Emergency [facility] [address] [place] [id number] Presley Elizabeth, Discharge Disposition: Home or Self Care 01/20/2025 10:00 AM EDT Office Visit [facility] Medicine [address] [place] [address] Deisy Emmanuel MD Primary osteoarthritis of first carpometacarpal joint of left hand (Primary Dx) 01/16/2025 9:52 AM EDT - 01/16/2025 11:59 PM EDT Hospital Encounter [facility], X-Ray - [facility] [address] [place] [address] Umesh Pugh, DO Discharge Disposition: Home or Self Care 01/10/2025 10:00 AM EDT Office Visit [facility] [address] [place] [address] Umesh Pugh, DO Chronic pain of right knee (Primary Dx); Anxiety; Mixed obsessional thoughts and acts; Left hip pain; Left hand pain; Mixed hyperlipidemia from Last 3 Months Immunizations Immunization Administration Dates Next Due INFLUENZA, SPLIT VIRUS, TRIVALENT PF 01/24/2024 INFLUENZA, SPLIT VIRUS, TRIV ALENT W/ PRESERVATIVE IM 03/01/2010,04/01/2008 Influenza Quadrivalent Prese rvative Free IM 02/15/2023,03/16/2022,07/16/2021,03/10,04/02/2019,03/21/2018 Pneumococcal conjugate PCV20 11/23/2022 Pneumococcal polysaccharide PPSV23 11/05/2020 Tdap 01/04/2024,06/20/2019,08/23/2007 Family History Medical History Relation Comments Alcohol abuse Brother Drug use disorder Brother Psychiatric disorder Brother No Known Problems Daughter 1 No Known Problems Daughter 2 No Known Problems Daughter 3 No Known Problems Daughter 4 Alcohol abuse Mother Hyperlipidemia Mother Hypertension Mother Alcohol abuse Sister Drug use disorder Sister Psychiatric disorder Sister Drug use disorder Son Relation Status Comments Brother Alive Daughter 1 Alive Daughter 2 Alive Daughter 3 Alive Daughter 4 Alive Father (Age 35) MVA Mother Sister Alive Son Alive Social History Tobacco Use Types Packs/Day Years Used Date Smoking Tobacco: Every Day Cigarettes 0.5 38.9 Started: 1986 Smokeless Tobacco: Never Tobacco Cessation:Ready to Q uit: Not Asked; Counseling Given: Not Answered Comments:10 cigarettes daily Alcohol Use Standard Drinks/Week [...] Don't know 02/13/2025 4: 23 AM EDT Last Filed Vital Signs Vital Sign Reading Time Taken Comments Blood Pressure 154/91 02/13/2025 4:11 AM EDT Pulse 73 02/13/2025 4:11 AM EDT Temperature 36.8 C (98.2 F) 02/13/2025 4:11 AM EDT Respiratory Rate 18 02/13/2025 4:11 AM EDT Oxygen Saturation 95% 02/13/2025 4:11 AM EDT Inhaled Oxygen Concentration - - Weight 77.1 kg (170 lb) 03/17/2025 7:25 PM EST Height 177.8 cm (5' 10 ) 03/17/2025 7:25 PM EST Body Mass Index 24.39 03/17/2025 7:25 PM EST Plan of Treatment Upcoming Encounters Date Type Department Care Team (Late st Contact Info) Description 04/03/2025 8:00 AM EST Office Visit [facility] Orthopedics & Sports Medicine [address] [place] [address] Danielle Blanca MD [address] [place] [address] Orthopedics & Sports Medicine, [facility] [place] [address] [email or web address] Health Maintenance Due Date Last Done Comments COLOGUARD 2012 FIT TEST 2012 FOBT 2012 SIGMOIDOSCOPY 2012 VIRTUAL COLONOSCOPY 2012 ZOSTER VACCINES (1 of 2) 2017 INFLUENZA VACCINE (#1) 2024 , 02/15/2023, 03/16/2022, Additional history exists COVID-19 VACCINE ( season) 2025 DEPRESSION SCREENING 07/23/2025 07/23/2024 SMOKING Hx and SMOKELESS TOBACCO SCREENING 01/20/2026 01/20/2025 LIPID PANEL 11/18/2029 11/18/2024, 07, 11/23/2022, Additional history exists COLONOSCOPY 03/16/2031 03/16/2021 COLORECTAL CANCER SCREENING 03/16/2031 Adult Td,Tdap Booster 01/03/2034 01/04/2024 , 06/20/2019, 08/23/2007 RSV VACCINE (1 - 1-dose 75+ series) 2042 HIV ONE-TIME SCREENING (18-65 YEARS) Completed 04/02/2019 HEPATITIS C SCREENING Completed 11/25/2020, 021 PNEUMOCOCCAL VACCINES (50+ years) Completed 11/23/2022, 11/05/2020 HEPATITIS A VACCINES Aged Out No long er eligible based on patient's age to complete this topic HIB VACCINES Aged Out No longer eligi ble based on patient's age to complete this topic IPV VACCINES Aged Out No longer eligi ble based on patient's age to complete this topic MENINGOCOCCAL VACCINES (ACWY) Aged Out No longer eligible based on patient's age to complete this topic MENINGOCOCCAL VACCINES (B) Aged Out N o longer eligible based on patient's age to complete this topic Medical Devices Implanted Type Area Soda Flaker Device Identifier Shelf Expiration Date Model / Serial / Lot [employer] Suture 4.5mm Arthroscopy Reelx Stt Peek Ss Core Knotless Shapr Tip Expandable Bx/5ea - [id number] Implanted:Qty: 1 on 03/11/2022 by Satnam Uriarte DO at [facility] Left: Shoulder [employer] 12/06/2023 [id number] / / [id number] Procedures Procedure Name Priority Date/Time Associated Diagnosis Comments MRI KNEE WITHOUT CONTRAST (RIGHT) Routine 03/21/2025 5:34 PM EST Instability of knee joint, unspecified laterality XR KNEE 4 OR MORE VIEWS (RIGHT) Routine 03/13/2025 12:34 PM EDT Pain, joint, knee, right XR KNEE 4 OR MORE VIEWS (RIGHT) Routine 01/16/2025 10:13 AM EDT Chronic pain of right knee LIPID PANEL Routine 11/18/2024 4:03 PM EDT Mixed hyperlipidemia ENDOSCOPY, COLON 03/16/2021 9:23 AM EDT HEPATITIS C ANTIBODY, QUALITATIVE Routine 11/25/2020 9:13 AM EDT Need for hepatitis C screening test from Last 3 Months or Most Recently Relevant to Health Maintenance Results * MRI KNEE WITHOUT CONTRAST (RIGHT) (03/21/2025 5:34 PM EST) Anatomical Region Laterality Modality Knee Right Magnetic Resonan ce 03/25/2025 11:0 0 AM EST Impressions 03/25/2025 11:12 AM EST 1. MCL sprain, at least grade II, with evidence of high-grade partial tearing within the superior and mid fibers and adjacent soft tissue and marrow edema. 2. Marrow edema within the adjacent medial femoral condyle, may represent bone contusion. No discrete fracture line seen. 3. Complex medial meniscal tear, which could be chronic/degenerative. 4. Joint effusion. 5. Fowler's cyst. Narrative 03/25/2025 11:12 AM EST MRI KNEE WITHOUT CONTRAST (RIGHT) Referring clinician's provided indication for this examination in Epic: * Knee instability HISTORY: Right knee pain. COMPARISONS: Right knee radiographs of 03/13/2025. TECHNIQUE: Multiplanar, multisequence imaging was performed through the right knee, without IV or intra-articular gadolinium. FINDINGS: LIGAMENTS: The anterior and posterior cruciate ligaments are intact. Abnormal MCL with evidence of high-grade partial tearing within the superior fibers with diffuse thickening and edema which appears acute to subacute. Some adjacent reactive marrow edema within the medial femoral condyle. LCL complex and extensor mechanism appear intact. MENISCI: Tearing and mild degeneration of the medial meniscus with mild complex degenerative tearing within the posterior horn/root and body including surfacing components, as well as mild peripheral and inner free edge fraying and mild peripheral extrusion of the body. Edema along the periphery along the deep fibers of the MCL. Lateral meniscus appears grossly intact. BONE MARROW: Moderate marrow edema within the medial femoral condyle which may represent bone contusion adjacent to MCL injury. Mild edema within the peripheral medial tibial plateau. No discrete fracture seen. JOINT/CARTILAGE: Moderate joint effusion with mild synovitis. Mild to moderate chondromalacia within the medial femoral condyle centrally and to a lesser degree within the central aspect of the lateral tibial plateau. 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 Procedure Note Harpreet Live MD - 03/25/2025 MRI KNEE WITHOUT CONTRAST (RIGHT) Referring clinician's provided indication for this examination in Epic: *Knee instability HISTORY: Right knee pain. COMPARISONS: Right knee radiographs of 03/13/2025. TECHNIQUE: Multiplanar, multisequence imaging was performed through Urvew knee, without IV or intra-articular gadolinium. FINDINGS: LIGAMENTS: The anterior and posterior cruciate ligaments are intact.Abnormal MCL with evidence of high-grade partial tearing within thesuperior fibers with diffuse thickening and edema which appears acute tosubacute. Some adjacent reactive marrow edema within the medial femoralcondyle. LCL complex and extensor mechanism appear intact. MENISCI: Tearing and mild degeneration of the medial meniscus with mild complexdegenerative tearing within the posterior horn/root and body includingsurfacing components, as well as mild peripheral and inner free edgefraying and mild peripheral extrusion of the body. Edema along theperiphery along the deep fibers of the MCL. Lateral meniscus appearsgrossly intact. BONE MARROW: Moderate marrow edema within the medial femoral condylewhich may represent bone contusion adjacent to MCL injury. Mild edemawithin the peripheral medial tibial plateau. No discrete fracture seen. JOINT/CARTILAGE: Moderate joint effusion with mild synovitis. Mild tomoderate chondromalacia within the medial femoral condyle centrally and toa lesser degree within the central aspect of the lateral tibial plateau. 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 IMPRESSION: 1. MCL sprain, at least grade II, with evidence of high-grade partialtearing within the superior and mid fibers and adjacent soft tissue andmarrow edema. 2. Marrow edema within the adjacent medial femoral condyle, may representbone contusion. No discrete fracture line seen. 3. Complex medial meniscal tear, which could be chronic/degenerative. 4. Joint effusion. 5. Fowler's cyst. Guru Nino PA-C IMG MR EXTREMITY Final Result * XR KNEE 4 OR MORE VIEWS (RIGHT) (03/13/2025 12:34 PM EDT) Narrative SYSTEMGENERATED, DOCUMENTATION - 03/13/2025 12:34 PM EDT This image report has been auto-finalized and has not been read by a Radiologist. Interpretation has been included in the provider encounter note for this date of service. Guru Nino PA-C IMG XR LOWER EXTREMITY Final Result * XR KNEE 4 OR MORE VIEWS (RIGHT) (01/16/2025 10:13 AM EDT) Anatomical Region Laterality Modality Knee Right Computed Radiogr aphy 01/16/2025 1:31 PM EDT Impressions 01/16/2025 1:32 PM EDT No acute osseous abnormality. Narrative 01/16/2025 1:32 PM EDT XR KNEE 4 OR MORE VIEWS (RIGHT) Referring clinician's provided indication for this examination [facility]: Pain COMPARISON: XR KNEE 4 OR MORE VIEWS (LEFT) FINDINGS: Normal joint spaces. No joint effusion. No acute fracture. Procedure Note Bridget Nevarez MD - 01/16/2025 XR KNEE 4 OR MORE VIEWS (RIGHT) Referring clinician's provided indication for this examination in [facility]:Pain COMPARISON: XR KNEE 4 OR MORE VIEWS (LEFT) FINDINGS: Normal joint spaces. No joint effusion. No acute fracture. IMPRESSION: No acute osseous abnormality. Umesh Pugh DO IMG XR LOWER EXTREMITY Final Res ult * (ABNORMAL) Lipid panel (11/18/2024 4:03 PM EDT) HDL 54 mg/dL [facility] Comment: Interpretation <40 mg/dL: Low HDL cholesterol (major risk factor for CHD) Greater than or equal to 60 mg/dL: High HDL cholesterol ( negative risk factor for CHD) HDL - cholesterol is affected by a number of factors, e.g. smoking, excerise, hormones, sex and age. CHOLESTEROL 160 0 - 240 mg/dL [facility] TRIGLYCERIDES 74 30 - 160 mg/dL [facility] LDL 91 50 - 129 mg/dL [facility] [facility] Comment: LDL levels in terms of risk for coronary heart disease: <100 mg/dL: Optimal 100-129 mg/dL: Near or above optimal 130-159 mg/dL: Borderline high 160-189 mg/dL: High >190 mg/dL: Very High CARDIAC RISK RATIO 3.0(L) 3.4 - 5.0 [facility] Blood 11/18/2024 4:03 PM EDT 11/18/2024 4:06 PM EDT us Umesh Pugh DO LAB BLOOD BKR ORDERABLES Final R esult [facility] [address] [place] [address] * ENDOSCOPY, COLON (03/16/2021 9:23 AM EDT) Narrative Transcriptions Shravan Rae MD - 03/16/2021 9:23 AM EDT Patient Name: Harpreet Ortega Attending MD:: SHRAVAN RAE MD Procedure Date: 03/16/2021 9:23 AM Date of : 1965 Age: 55 Admit Type: Outpatient Gender: Male Room: [place] [address] Referring MD: MISHEL FLYNN Exam Type: Colonoscopy Indications: Screening for colorectal malignant neoplasm, This is the patient's first colonoscopy Medications: Monitored Anesthesia Care Procedure: Informed consent was obtained from the patient after discussion of the indications, limitations, alternatives, benefits, and risks of the procedure. Risks specifically discussed include but are not limited to medication reactions, missed lesions, bleeding, perforation, or the need for emergentsurgery. Throughout the procedure, the patient's bloodpressure, pulse, end-tidal CO2, and oxygen saturations were monitored continuously. The Olympus pediatric variable colonoscopePCF-[id number] #5 was introduced through the anus and advanced tothe terminal ileum, with identification of theappendiceal orifice and IC valve. The colonoscopy was performed without difficulty. The patient tolerated theprocedure fairly well. The quality of the bowel preparationwas good. Complications: No immediate complications. Estimated blood loss:None. Findings: The perianal and digital rectal examinations were normal. Pertinent negatives include normal sphincter tone. The terminal ileum appeared normal. Retroflexion in the right colon was performed. Non-bleeding internal hemorrhoids were found during retroflexion. The hemorrhoids were moderate. The exam was otherwise without abnormality on direct and retroflexion views. Impression: - The examined portion of the ileum was normal. - Non-bleeding internal hemorrhoids. - The examination was otherwise normal on direct and retroflexion views. - No specimens collected. Recommendation: - Repeat colonoscopy in 10 years for screeningpurposes. - Discharge patient to home. - Patient has a contact number available for emergencies. The signs and symptoms of potential delayed complications were discussed with thepatient. Return to normal activities tomorrow. Writtendischarge instructions were provided to the patient. SHRAVAN RAE MD 03/16/2021 9:51:30 AM This report has been signed electronically. Number of Addenda: 0 Note Initiated On: 03/16/2021 9:23 AM Procedure Code(s): --- Professional --- 72049, Colonoscopy, flexible; diagnostic, including collection of specimen(s) by brushing or washing, when performed (separateprocedure) --- Technical --- 92897, Colonoscopy, flexible; diagnostic, including collection of specimen(s) by brushing or washing, when performed (separateprocedure) Diagnosis Code(s): --- Professional --- Z12.11, Encounter for screening for malignantneoplasm of colon --- Technical --- Z12.11, Encounter for screening for malignantneoplasm of colon CPT copyright 2018 [employer]. All rights reserved. The codes documented in this report are preliminary and upon school photographs detailer reviewmay be revised to meet current compliance requirements. Procedure Date: 03/16/2021 9:23:22 AM [address] [place] [address] us Mishel Flynn NP GI PROCEDURE ORDERABLES Final R esult * Hepatitis C antibody, qualitative (11/25/2020 9:13 AM EDT) HCV NON-REACTIV E NON-REACTI VE [facility] Blood 11/25/2020 9:13 AM EDT 11/25/2020 1:21 PM EDT us Mishel Flynn NP LAB BLOOD BKR ORDERABLES Final Result [facility] [address] [place] [address] from Last 3 Months or Most Recently Relevant to Health Maintenance Insurance MEDICARE PART A & B MEDICARE PART A & B MEDICARE PART A & B MEDICARE PART A & B MEDICARE PART A & B MEDICARE PART A & B MEDICARE PART A & B MEDICARE PART A & B MEDICARE PART A & B MAP[employer]RE MEDICARE PART A & B Care Teams Shipping Weigher Relationship Specialty Start Date End Date Umesh Pugh DO [address] [facility] [address] [place] [id number] [email or web address] PCP - General Family Medicine 10/05/23 Billy Miramontes MD [address] [place] [id number] Neurosurgery 03/24/20 Umesh Pugh DO [address] [facility] [address] [place] [address] [email or web address] Insurance Assigned Provider 08/18/24 Additional Source Comments The information contained in this document represents components of the legal health record. It is not the complete legal health record.[facility]
--- OUTSIDE RECORDS SUMMARY | 2025-03-28 08:18 | XMS_ITS | Encounter Summary ---
Author Organization [facility] Address [address] [facility] [address] [place] [address] Phone Care Team Providers Care Windlasser Name Role Phone Mishel Peñaloza NP Primary Care Provider [phone] Billy Miramontes MD Unavailable [phone] Chris Stokes MD Unavailable [phone] Unknown, Unknown Primary Care Provider Umesh Barragan DO Primary Care Provider [phone] Umesh Pugh DO Unavailable Encounter Details Date Type Department Care Team (Late st Contact Info) Description 03/16/2022 Procedure Pass [facility], Ct Scan - [address] [address] Social History Tobacco Use Types Packs/Day Years Used Date Smoking Tobacco: Every Day Cigarettes 0.3 38.9 Started: 1986 Smokeless Tobacco: Never Comments:3 cigarettes daily Alcohol Use Standard Drinks/Week Comments No 0 [...] high school, GED, job training, learning the [place] language, technical skills, or developing parenting skills)? [...] is your housing situation today? I have ekatreina elmore 11/13/2021 How many times have you [...] 04/03/2025 8:00 AM EST Office Visit [facility] [address] [place] [id number] Danielle Blanca MD [address] [place] [address] [facility] [place] [address] documented as of this encounter Visit Diagnoses Not on filedocumented in this encounter Additional Health Concerns Assessment Noted Time PHQ-2 Depression Total Score: 0 11/14/19 9:01 AM EDT documented as of this encounter Care Teams Windlasser Relationship Specialty Start Date End Date Mishel Peñaloza NP PCP - General Family Medicine 02/08/18 08/09/23 Unknown, Unknown, PCP - General 08/10/23 10/04/23 Umesh Pugh DO [address] [facility] [address] [place] [address] [email or web address] PCP - General Family Medicine 10/05/23 Billy Miramontes MD [address] [place] [id number] Neurosurgery 03/24/20 Chris Stokes MD [address] [place] [phone] [email or web address] Insurance Assigned Provider 08/21/21 05/21/22 Umesh Pugh DO [address] [place] [address] [address] [place] [address] [email or web address] Insurance Assigned Provider 08/18/24 documented as of this encounter Additional Source Comments The information contained in this document represents components of the legal health record. It is not the complete legal health record.[facility]
== END 2025-03-28 08:48 | disposition home or self-care (01) ==
PROVIDERS: Visit Provider Physician Assistant
DX: K04.7 Periapical abscess without sinus (principal)

== ENCOUNTER → 2025-03-28 08:07 | Outpatient (BNVA) | payer MEDICARE, SELFPAY | PROVIDERS: Visit Provider Physician Assistant | DX: K04.7 Periapical abscess without sinus (principal) | CPT/HCPCS: 99212 ==